=== PATIENT | female | born 1940 | race Caucasian/White ===

== ENCOUNTER 2020-12-02 07:42 | Outpatient (REF) | payer MEDICARE, SELFPAY ==
[2020-12-02 11:21] LABS: MANUAL DIFF FLAG NO
[2020-12-02 11:28] LABS: Glucose Urine UA NEG (NEG); Leukocyte Esterase Urine NEG (NEG); Nitrite Urine NEG (NEG); Specific Gravity - Urine >= 1.030 (1.005-1.025); Urine Blood NEG (NEG); Urine Ketones NEG (NEG); Urine Protein NEG (NEG-TRACE)
[2020-12-02 11:37] LABS: Appearance Urine TURBID; Color Urine YELLOW
[2020-12-02 11:45] LABS: Anion Gap 11 (12-20); Blood Urea Nitrogen 27 mg/dL (9-16); Carbon Dioxide 27 mmol/L (22-29); Chloride 108 mmol/L (96-108); Cholesterol 152 mg/dL; Estimated Glomerular Filt Rate > 60; Glucose Fasting 110 mg/dL (60-99); HDL Cholesterol 58 mg/dL; LDL Cholesterol Calculated 80 mg/dl; Potassium 4.6 mmol/L (3.3-5.1); Sodium 141 mmol/L (135-145); Triglycerides 71 mg/dL
[2020-12-02 11:54] LABS: Basophils Percent Auto 0.6 % (0-2); Eosinophils Absolute Auto 0.1 X10*3/uL (0.0-0.4); Eosinophils Percent Auto 2.7 % (0-4); Hematocrit 39.4 % (37-47); Hemoglobin 12.5 g/dl (12.0-16.0); Imm Gran Abs Auto 0.02 X10*3/uL (0.00-0.03); Imm Gran Pct Auto 0.4 % (0.0-0.4); Lymphocytes Absolute Auto 1.1 X10*3/uL (1.2-4.9); Lymphocytes Percent Auto 21.3 % (20-40); Mean Corpuscular HGB Conc 31.7 g/dl (31.0-35.0); Mean Corpuscular Hemoglobin 33.5 pg (27.0-33.0); Mean Corpuscular Volume 105.6 fL (80-98); Mean Platelet Volume 9.7 fL (9.4-12.3); Monocytes Absolute Auto 0.5 X10*3/uL (0.1-1.2); Monocytes Percent Auto 9.4 % (2-11); Neutrophils Absolute Auto 3.4 X10*3/uL (2.0-8.3); Neutrophils Percent Auto 65.6 % (45-73); Platelet Count 259 X10*3/uL (160-400); Red Blood Count 3.73 X10*6/uL (4.20-5.50); Red Cell Distribution Width 13.8 % (11.0-16.0); White Blood Count 5.1 X10*3/uL (4.8-10.8)
[2020-12-02 12:09] LABS: TSH reflex Free T4 1.72 uIU/mL (0.32-4.0)
[2020-12-02 12:14] LABS: Amorphous Sediment Urine 4+ /LPF; Bacteria Urine TRACE /LPF; RBC Urine 0 /HPF (0); WBC Urine 0 /HPF (0-4)
[2020-12-02 13:01] LABS: Creatinine Urine 134.57 mg/dL; Microalbum/Creatinine Ratio Ur 14.1 ug/mg cr
[2020-12-09 13:15] LABS: Vitamin D 25-OH, D2 <4 ng/mL; Vitamin D 25-OH, D3 31 ng/mL; Vitamin D 25-OH, Total 31 ng/mL (30-100)
== END 2020-12-02 07:43 | disposition home or self-care (01) ==
LOC: HO.HMGCLDS 07:42
PROVIDERS: PCP Internal Medicine; Visit Provider Internal Medicine
DX: Z00.00 Encounter for general adult medical examination without abnormal findings (principal); I10 Essential (primary) hypertension; R73.01 Impaired fasting glucose; E55.9 Vitamin D deficiency, unspecified; R31.1 Benign essential microscopic hematuria; E78.5 Hyperlipidemia, unspecified; E66.3 Overweight
CPT/HCPCS: 36415; 80048; 80061; 81001; 82043; 82306; 84443; 85025

== ENCOUNTER 2020-12-06 08:50 | Outpatient (REF) | payer MEDICARE, SELFPAY ==
--- NOTE | 2020-12-06 13:23 | MHC.AU.ANO ---
Adult Audiological Evaluation Date of Visit: 12/06/20 Adjunct Faculty Instructor Used: Not Applicable Reason for Appointment: Audiologic re-evaluation due to question of change in hearing ability. Katarzyna reports speech sounds more garbled and she is not able to understand the speaker and some surrounding sounds when in [place]. Does patient feel they have a hearing loss?: Yes If Yes, Which Ear?: Both Ears Has hearing been tested previously?: Yes Previous Hearing Test Results: [facility] 11/29/2019 Right Ear - Moderate to moderately-severe sensorineural hearing loss with 92% speech understanding at 80 dB HL Left Ear - Mild sloping to moderately-severe sensorineural hearing loss with 96% speech understanding at 75 dB HL Ear History: Ear used on the phone: Left Ear History of occupational and/or noise exposure?: No Medical History: Medical History: Headache, High Blood Pressure Measles, Mumps as a child Medication List: Propranolol, Lisinopril Otoscopy: Right Ear: Unremarkable Left Ear: Unremarkable Tympanometry: Tympanometry performed due to: Patient report of problem with sound quality/clarity Right Ear: Normal Middle Ear System (Type A) Left Ear: Normal Middle Ear System (Type A) Otoacoustic Emissions Not performed at today's visit. Hearing Evaluation: Transducer(s) Used: Insert Earphones Bone Conduction Method: Conventional Audiometry Stimuli Used: Pure Tones Right Ear: Description of Hearing: Moderate to moderately-severe sensorineural hearing loss Left Ear: Description of Hearing: Mild sloping to moderately-severe sensorineural hearing loss Speech Recognition Threshold (SRT): Method Used: Monitored Live Voice Stimuli Used: Spondee Words Right Ear: 45 dB HL Left Ear: 40 dB HL Word Discrimination: Method: Recorded Lists Word Lists Used: NU-6 Right Ear: 96% at 75 dB HL Left Ear: 88% at 70 dB HL Most Comfortable Level (MCL): Right Ear: 75 dB HL Left Ear: 70 dB HL QuickSIN: Binaural Quick SIN Test: 5 dB SNR Loss suggesting Katarzyna experiences a mild degree of difficulty understanding speech with increasing levels of background noise in this controlled test environment. Comparison: Compared to most recent evaluation: Compared to 2019, thresholds have decreased for both ears 5-10 dB with stable speech understanding Interpretation of Results: With this degree and configuration of hearing loss, Katarzyna will know people are speaking and hear many environmental sounds. However, she does not always understand what others are saying, particularly when people are speaking from a distance, a different room, or when background noise is present. Recommendations: Trial with amplification is recommended. Medical clearance from a physician is required before fitting. Hearing Aid Fitting will be scheduled when all materials arrive. Discussed and provided a handout regarding Communication Strategies to use to improve speech understanding as much as possible. Audiological re-evaluation in one year. Will send a reminder card. Diagnosis: Primary Diagnosis: H90.3 Bilateral Sensorineural Hearing Loss Services Performed: Comprehensive Audiological Evaluation (CPT 46884) Tympanometry (CPT 89309) Signature: Provider: Russell White, CCC-A
--- NOTE | 2020-12-06 13:30 | MHC.AU.HAS ---
Hearing Aid Evaluation Date of Visit: 12/06/20 Fruit Coordinator Used: Not Applicable Historical Information: Description of Hearing: Asymmetric mild/moderate low frequency sloping to moderately-severe sensorineural hearing loss , right ear poorer than left 250-2000 Hz Current personal amplification information, if applicable: None Summary: Binaural hearing aids are recommended to facilitate communication. Discussed appropriate hearing aid styles and levels of technology. Hearing Aid Prescription: Based on the individual?s shared listening needs, communication environments, dexterity, desire for connectivity, and personal preferences, the following prescription for amplification has been made: Right ear: Web Production Artist: Phonak Model: Virto M 90-312 Battery Size: 312 Color: [place] Left ear: Left ear prescription to be same as Right Hearing Aid above: Web Production Artist: Phonak Model: Virto M 90-312 Battery Size: 312 Color: [place] Plan of Care: Patient wishes to purchase hearing aids as prescribed Action Taken/Action Needed: [place] Impressions Taken, Medical Clearance to be requested from PCP/ENT, Hearing Instrument Fitting to be scheduled when materials arrive Primary Diagnosis: H90.3 Bilateral Sensorineural Hearing Loss Signature: Provider: Russell White, CCC-A
--- NOTE | 2020-12-06 13:41 | MHC.AU.ANO ---
Adult Audiological Evaluation Date of Visit: 12/06/20 Bi Lead Used: Not Applicable Reason for Appointment: Audiologic re-evaluation due to question of change in hearing ability. Katarzyna reports speech sounds more garbled and she is not able to understand the speaker and some surrounding sounds when in [place]. Does patient feel they have a hearing loss?: Yes If Yes, Which Ear?: Both Ears Has hearing been tested previously?: Yes Previous Hearing Test Results: [facility] 11/29/2019 Right Ear - Moderate to moderately-severe sensorineural hearing loss with 92% speech understanding at 80 dB HL Left Ear - Mild sloping to moderately-severe sensorineural hearing loss with 96% speech understanding at 75 dB HL Ear History: Ear used on the phone: Left Ear History of occupational noise exposure?: No History: History: No Medical History: Medical History: Headache, High Blood Pressure Measle, Mumps as a child Medication List: Propranolol, Lisinopril Otoscopy: Right Ear: Unremarkable Left Ear: Unremarkable Tympanometry: Tympanometry performed due to: Patient report of problem with sound quality/clarity Right Ear: Normal Middle Ear System (Type A) Left Ear: Normal Middle Ear System (Type A) Otoacoustic Emissions Not performed at today's visit. Hearing Evaluation: Transducer(s) Used: Insert Earphones Bone Conduction Method: Conventional Audiometry Stimuli Used: Pure Tones Right Ear: Description of Hearing: Moderate to moderately-severe sensorineural hearing loss Left Ear: Description of Hearing: Mild sloping to moderately-severe sensorineural hearing loss Speech Recognition Threshold (SRT): Method Used: Monitored Live Voice Stimuli Used: Spondee Words Right Ear: 45 dB HL Left Ear: 40 dB HL Word Discrimination: Method: Recorded Lists Word Lists Used: NU-6 Right Ear: 96% at 75 dB HL Left Ear: 88% at 70 dB HL Most Comfortable Level (MCL): Right Ear: 75 dB HL Left Ear: 70 dB HL QuickSIN: Binaural Quick SIN Test: 5 dB SNR Loss suggesting Katarzyna experiences a mild degree of difficulty understanding speech with increasing levels of background noise in this controlled test environment. Comparison: Compared to 2019, thresholds have decreased for both ears 5-10 dB with stable speech understanding Interpretation of Results: With this degree and configuration of hearing loss, Katarzyna will know people are speaking and hear many environmental sounds. However, she does not always understand what others are saying, particularly when people are speaking from a distance, a different room, or when background noise is present. Recommendations: Trial with amplification is recommended. Medical clearance from a physician is required before fitting. Hearing Aid Fitting will be scheduled when all materials arrive. Discussed and provided a handout regarding Communication Strategies to use to improve speech understanding as much as possible. Audiological re-evaluation in one year. Will send a reminder card. Diagnosis: Primary Diagnosis: H90.3 Bilateral Sensorineural Hearing Loss Services Performed: Comprehensive Audiological Evaluation (CPT 31419) Tympanometry (CPT 07758) Signature: Provider: Russell White, CCC-A
== END 2020-12-06 08:51 | disposition home or self-care (01) ==
LOC: HO.SH 08:50
PROVIDERS: Visit Provider Internal Medicine
DX: H90.3 Sensorineural hearing loss, bilateral (principal)
CPT/HCPCS: 92557; 92567

== ENCOUNTER 2020-12-06 10:03 | Outpatient (REF) | payer SELFPAY ==
--- NOTE | 2020-12-06 13:36 | MHC.AU.HAS ---
Hearing Aid Evaluation Date of Visit: 12/06/20 Buckle Attaching Machine Operator Used: Not Applicable Historical Information: Description of Hearing: Asymmetric mild to moderate, sloping to moderately-severe sensorineural hearing loss with right ear poorer than left at 250-2000 Hz Current personal amplification information, if applicable: None Summary: Binaural hearing aids are recommended to facilitate communication. Discussed appropriate hearing aid styles and levels of technology. Due to patient concerns, Custom [id number] are advised for ease of use as is only one piece to handle for each ear. Hearing Aid Prescription: Based on the individual?s shared listening needs, communication environments, dexterity, desire for connectivity, and personal preferences, the following prescription for amplification has been made: Right ear: Logging Crew Supervisor: Phonak Model: Virto M 90-312 Battery Size: 312 Color: [place] Left ear: Left ear prescription to be same as Right Hearing Aid above: Logging Crew Supervisor: Phonak Model: Virto M 90-312 Battery Size: 312 Color: [place] Plan of Care: Patient wishes to purchase hearing aids as prescribed Action Taken/Action Needed: Earmold Impressions Taken, Medical Clearance to be requested from PCP/ENT, Hearing Instrument Fitting to be scheduled when materials arrive Primary Diagnosis: H90.3 Bilateral Sensorineural Hearing Loss Signature: Provider: Russell White, CCC-A
--- NOTE | 2020-12-06 13:40 | MHC.AU.MED ---
Medical Clearance for Hearing Instrumentation Date: 12/06/20 Patient Name: Katarzyna Driver Date of : 1940 Primary Care Provider: Referring Provider: Kavon Ramirez MD We have seen your patient on 12/06/20 and have determined that they are a candidate for amplification (See accompanying report). Specifically, they would benefit from: Hearing aid use in both ears There is a statute that addresses Medical Evaluation Requirements prior to fitting a patient with a hearing aid. According to [place] statute 265 CMR:6.03(1), (a) General. Except as provided in 265 CMR 6.03(1)(b), a shearing shed worker shall not sell a hearing aid unless the prospective user has presented to the shearing shed worker a written statement signed by a licensed physician that states that the patient's hearing loss has been medically evaluated and the patient may be considered a candidate for a hearing aid. The medical evaluation must have taken place within the preceding six months. Please note: Due to the [place] Statute referenced above, we cannot accept a signature other than that of a licensed physician. [employer] A REGIONAL TRUCK DRIVER and PA signatures cannot be accepted. I am in agreement with the above recommendation. There is no medical contraindication for hearing instrumentation. Physician Signature Date Physician Name (Printed)
== END 2020-12-06 10:04 | disposition home or self-care (01) ==
LOC: HO.HAP 10:03
PROVIDERS: Visit Provider Internal Medicine
DX: Z46.1 Encounter for fitting and adjustment of hearing aid (principal); H90.3 Sensorineural hearing loss, bilateral
CPT/HCPCS: 92591

== ENCOUNTER 2021-01-20 09:23 | Outpatient (REF) | payer SELFPAY | END 2021-01-20 09:24 | disposition home or self-care (01) | LOC: HO.HAP 09:23 | PROVIDERS: Visit Provider Internal Medicine | DX: Z46.1 Encounter for fitting and adjustment of hearing aid (principal); H90.3 Sensorineural hearing loss, bilateral | CPT/HCPCS: V5260 ==

== ENCOUNTER 2021-01-31 10:26 | Outpatient (REF) | payer SELFPAY | END 2021-01-31 10:27 | disposition home or self-care (01) | LOC: HO.HAP 10:26 | PROVIDERS: Visit Provider Internal Medicine | DX: Z13.89 Encounter for screening for other disorder (principal) ==

== ENCOUNTER 2022-06-25 08:39 | Outpatient (REF) | payer MEDICARE, SELFPAY ==
--- NOTE | ~2022-06-25 | MM_ITS ---
EXAMINATION: BONE DENSITOMETRY CLINICAL INDICATION: Osteoporosis. COMPARISON: Previous BD dated 01/27/2016 and baseline BD dated 10/03/2010. TECHNIQUE: Using a [employer] DXA System (software version: 13.1) manufactured by [employer], dual-energy x-ray absorptiometry was performed of the lumbar spine and left hip. The images are of good technical quality. Summary results are attached. FINDINGS: AP SPINE L1-L2 (excluding L3 and L4): The data of L1-L4 has been changed to exclude the L3 and L4 vertebral bodies, because degenerative changes at these levels may cause overestimation of lumbar spine density. Current: BMD 0.691 g/cm2, Z-score -2.1, T-score -3.9, osteoporosis, 4.1% increase from previous, 3.8% decrease from baseline (<5% change is not significant). Prior: BMD 0.664 g/cm2. Baseline: BMD 0.718 g/cm2. LEFT FEMUR, NECK: Current: BMD 0.546 g/cm2, Z-score -1.3, T-score -3.5, osteoporosis. Prior: BMD 0.605 g/cm2. Baseline: BMD 0.690 g/cm2. LEFT FEMUR, TOTAL: Current: BMD 0.615 g/cm2, Z-score -1.0, T-score -3.1, osteoporosis, 12.1% decrease from previous, 19.3% decrease from baseline (<5% change is not significant). Prior: BMD 0.700 g/cm2. Baseline: BMD 0.762 g/cm2. IDENTIFIED RISK FACTORS: Menopause, height loss, family history (parent hip fracture). HISTORY OF FRACTURE: None listed. MEDICATIONS: Vitamin D. MM/XR DEXA axial skeleton IMPRESSION: 1. DIAGNOSIS: Osteoporosis based on the lowest T-score value of -3.9 in the lumbar spine applying World Health Organization criteria. 2. 10-YEAR FRACTURE RISK PREDICTION, FRAX: According to the guidelines, FRAX calculation should only be performed on patients in the osteopenia bone density category. Therefore, FRAX was not performed on this patient. 3. Treatment Recommendations: NOF guidelines recommend consideration for treatment in postmenopausal women and men age 50 and older presenting with the following: -A hip or vertebral (clinical or morphometric) fracture. -T-score less than or equal to -2.5 at the femoral neck or spine after appropriate evaluation to exclude secondary causes. -Low bone mass at the hip or spine and a 10-year fracture probability by FRAX of greater than or equal to 3% for hip fracture or greater than or equal to 20% for major osteoporotic fracture based on the [place] adapted WHO algorithm. 4. Other Recommendations: All treatment decisions require clinical judgment and consideration of individual patient factors, including patient preferences, comorbidities, previous drug use, risk factors not captured in the FRAX model (e.g. frailty, falls, vitamin D deficiency, increased bone turnover, interval significant decline in bone density) and possible under or overestimation of fracture risk by FRAX. Additional medical evaluation for secondary cause of low bone mineral density may be appropriate. FUTURE SCAN RECOMMENDATION: People with diagnosed cases of osteoporosis or at high risk for fracture should have regular bone mineral density tests. For patients eligible for Medicare, routine testing is allowed once every 2 years. The testing frequency can be increased to one year for patients who have rapidly progressing disease, those who are receiving or discontinuing medical therapy to restore bone mass, or have additional risk factors.
== END 2022-06-25 08:40 | disposition home or self-care (01) ==
LOC: HO.MAMMO 08:39
PROVIDERS: PCP Internal Medicine; Visit Provider Internal Medicine
DX: Z13.820 Encounter for screening for osteoporosis (principal); M81.0 Age-related osteoporosis without current pathological fracture; Z78.0 Asymptomatic menopausal state
CPT/HCPCS: 77080

== ENCOUNTER 2022-12-09 10:00 | Outpatient (AMB) | payer MEDICARE, SELFPAY ==
[2022-12-09 10:01] VITALS: BP 114/60; PULSE 67; O2SAT 76; BMI 27.6
--- NOTE | 2022-12-09 10:01 | MHC.PC.OV ---
Vital Signs 12/09/22 10:01 Height 5 ft 1 in Weight 146 lb BMI 27.6 BP 114/60 Blood Pressure Location Lt brachial Position Sitting Pulse 67 Pulse Source Pulse Oximeter Pulse Oximetry (%) 76 L Oxygen Delivery Method Room Air Intake Visit Reasons: HTN, osteoporosis Quality Controller Required: No Accompanied by: Self / Same As Patient Allergies No Known Allergies Allergy (Verified 12/09/22 10:34) Medication List - Last Reconciled 12/09/22 by Kavon Ramirez MD lisinopril 10 mg PO DAILY propranolol ER 80 mg PO DAILY Tobacco use date assessed: 12/09/22 Fall risk assessment: No Falls in past year Last assessed Fall Risk: 12/09/22 Dental Screening Dental Screen Date: 12/09/22 Did you have a dental visit in the last 12 months?: Yes Did you have a dental problem in the last 6 months where you did not have access to dental care?: No Was dental information given to patient?: Patient has dentist HPI HTN, osteoporosis HPI Details Patient comes in today for her follow up visit States that she feels okay She denies any headaches or dizziness Denies any chest pains, no SOB No nausea/vomiting, no abdominal pain No change in bowel habits noted Needs her 2 Rx refilled today Would also like to know how she did on her repeat BMD done a few months ago [facility] Medical History Benign essential hypertension Benign microscopic hematuria Constipation Dyslipidemia Impaired fasting glucose Migraine Osteoarthritis of right knee Osteoporosis Overweight (BMI 25.0-29.9) Vitamin D deficiency Surgical History History of colonoscopy Family History Father Medical history unknown Mother Medical history unknown Social History Housing: House Alcohol intake: current Alcohol intake frequency: holidays/special occasions only Patient Tobacco Use Status: Never used Tobacco e-Cigarette/Vaping Use: Never Used Second Hand Smoke Exposure: Yes service: No Current occupational status: retired Cognitive needs: No Hearing needs: Yes Vision needs: Yes Questionnaire PHQ-9 Over the last 2 weeks, how often have you been bothered by any of the following problems? 1. Little interest or pleasure in doing things: not at all 2. Feeling down, depressed, or hopeless: not at all 3. Trouble falling or staying asleep, or sleeping too much: not at all 4. Feeling tired or having little energy: not at all 5. Poor appetite or overeating: not at all 6. Feeling bad about yourself - or that you are a failure or have let yourself or your family down: not at all 7. Trouble concentrating on things, such as reading the newspaper or watching television: not at all 8. Moving or speaking so slowly that other people could have noticed. Or the opposite - being so fidgety or restless that you have been moving around a lot more than usual: not at all 9. Thoughts that you would be better off or of hurting yourself in some way: not at all Total score: 0 Depression Screening Interpretation: Negative [id number] - PHQ-9 Billing: Yes Source: Developed by Drs. Prabhu Crawford, Annamarie Coffey, Tobi Giles and colleagues, with an educational jovan from [employer]. Thrive Questionnaire Date Thrive assessed: 12/09/22 I am a: Patient What is your living situation today?: I have a steady place to live Within the past 12 months, did the food you bought not last and you didn't have the money to get more?: Never true Within the past 12 months, did you worry whether your food would run out before you got money to buy more?: Never true Do you have trouble paying for medicines?: No Do you have trouble getting transportation to medical appointments?: No Do you have trouble paying your heating and electricity bill?: No Do you have trouble taking care of your child, family member or friend?: No Do you have trouble with day-to-day activities such as bathing, preparing meals, shopping, managing finances, etc.?: No Are you currently unemployed and looking for a job?: No Are you interested in more education?: No Please select the resources that you would like help with: None Currently or been in a relationship where the following occur: no concerns reported AUDIT C Alcohol Use Questionnaire (AUDIT-C) 1. How often do you have a drink containing alcohol?: Never 3. How often do you have six or more drinks on one occasion?: Never Total Score: 0 Score Reviewed/Action Taken: Yes YOLANDA-7 AMB Questionnaire YOLANDA-7 Date YOLANDA - 7 assessed: 12/09/22 Feeling nervous, anxious, or on edge: 0 = Not at all Not being able to stop or control worryin = Not at all Worrying too much about different things: 0 = Not at all Trouble relaxin = Not at all Being so restless that it is hard to sit still: 0 = Not at all Becoming easily annoyed or irritable: 0 = Not at all Feeling afraid as if something awful might happen: 0 = Not at all Total YOLANDA-7 score (0-4 normal; 5-9 mild; 10-14 moderate; 15-21 severe): 0 Source: Developed by Drs. Prabhu Crawford, Annamarie Coffey, Tobi Giles and colleagues, with an educational jovan from [employer]. Review of Systems Const Reports difficulty sleeping (at times), Denies fatigue, Denies fever(s) and Denies headache(s) ENT Denies dysphagia, Denies dizziness, Denies otalgia, Denies headache(s), Reports hearing loss (now wears hearing aids), Denies odynophagia and Denies sore throat Card Denies chest pain, Denies palpitations and Denies dyspnea Resp Denies cough and Denies dyspnea GI Denies abdominal pain, Denies constipation, Denies dysphagia, Denies heartburn, Denies diarrhea, Denies nausea, Denies odynophagia and Denies vomiting Denies difficulty voiding, Denies nocturia and Denies dysuria Musc Reports arthralgias (minimal - in both knees), Denies joint swelling and Reports stiffness (in both knees - has a hard time using stairs) Skin/Breast Denies rash Neuro Denies dizziness and Denies headache(s) Endo Denies fatigue and Denies palpitations Physical exam (Primary Care) Vital Signs: Last Vital Signs Pulse 67 12/09/22 10:01 BP 114/60 12/09/22 10:01 Pulse Ox 76 L 12/09/22 10:01 Oxygen Delivery Method Room Air 12/09/22 10:01 BMI result Body Mass Index 27.6 Tobacco/Smoking Status: Tobacco use Status Tobacco use date assessed 12/09/22 12/09/22 10:09 Patient Tobacco Use Status Never used Tobacco 12/09/22 10:09 e-Cigarette/Vaping Use Never Used 12/09/22 10:09 PHQ-9: PHQ-9 Score PHQ-9: Total score 0 12/09/22 10:39 Depression Screening Interpretation: Negative Thrive Assessment: Date of Thrive Assessment Date Thrive assessed 12/09/22 12/09/22 10:09 Currently or been in a relationship where the following occur: no concerns reported Const General: no acute distress and alert HENMT Ears: TM's normal bilaterally, EAC's normal and other (has hearing aids in both ears) Throat: Yes posterior oropharynx normal and Yes tonsils normal (no TP congestion noted) Neck Neck: Yes no lymphadenopathy and Yes supple Resp Auscultation: clear to auscultation bilaterally, no rales and no wheezes Cardio Rate: regular rate Rhythm: regular rhythm Heart sounds: no murmurs GI Palpation (GI): Soft to palpation and nontender Auscultation: normal bowel sounds Extrem General: Yes no clubbing, cyanosis or edema Right lower extremity: knee Details: tenderness and crepitus; no swelling Left lower extremity: knee Details: tenderness and crepitus; no swelling Assessment and Plan Assessment & Plan (1) Benign essential hypertension: Code(s): I10 - Essential (primary) hypertension Plan: Reinforced low sodium diet - goal is systolic BP of at least 140 to 150 mm or less Continue Lisinopril 10 mg QD (2) Dyslipidemia: Code(s): E78.5 - Hyperlipidemia, unspecified Plan: Had her follow up labs done at the [facility] earlier this year; no labs ordered since Reinforced low cholesterol diet Will have patient recheck her labs in 6 months for follow up (3) Impaired fasting glucose: Code(s): R73.01 - Impaired fasting glucose Plan: FBS was at 96 mg/dl and her HgbA1c was normal at 5.6% on her labs done earlier this year - will continue to monitor these regularly for now Reinforced low calorie diet/exercise as tolerated (4) Migraine: Code(s): G43.909 - Migraine, unspecified, not intractable, without status migrainosus Qualifiers: Intractability: not intractable Migraine type: unspecified Status migrainosus presence: without status migrainosus Qualified Code(s): G43.909 - Migraine, unspecified, not intractable, without status migrainosus Plan: Stable on prophylactic Rx with Propranolol ER 80 mg QD - Rx refilled (5) Osteoporosis: Code(s): M81.0 - Age-related osteoporosis without current pathological fracture Qualifiers: Osteoporosis type: age-related Presence of current pathological fracture: without current pathological fracture Qualified Code(s): M81.0 - Age-related osteoporosis without current pathological fracture Plan: Repeat BMD done back on 06/25/2022 revealed (+) osteoporosis with her lowest T-score value of -3.9 in the lumbar spine Patient is advised that her lumbar spine BMD is mostly unchanged from before but her left femoral BMD has declined significantly from her previous BMD in January 2016 (12.1% decrease) Advised that her current T-score of -3.9 is very low and this means that her fracture risk overall is very high and she should consider starting on Tx She now agrees to start on Alendronate 70 mg Q week as instructed Potential side effects of the medication discussed with patient; is advised to call ROBERTA if she starts experiencing any side effects that are increasing and not letting up even after a few days Have also reminded her to take oral Calcium supplements (at least 1000 mg daily) and Vitamin D3 supplements daily Reinforced fall precautions Will try to recheck her BMD in 1 to 2 years (depending on insurance coverage) for follow up (6) Osteoarthritis of right knee: Code(s): M17.11 - Unilateral primary osteoarthritis, right knee Qualifiers: Osteoarthritis type: primary Qualified Code(s): M17.11 - Unilateral primary osteoarthritis, right knee Plan: States that her knee symptoms have remained stable and manageable X-rays of the knee done back in 2012 showed (+) OA changes and advised that her current knee stiffness is probably due to this Can send her for repeat knee x-rays if needed but patient again would like to hold off on this for now and will call for orders if she decides she needs repeat x-rays Advised that cortisone injections can help but she can only get it so many times and have advised to leave this option for when her knee pain becomes unbearable and nothing else is helping Also advised that physical therapy has helped in the past so that is again an option for her if her knee symptoms progress (7) Vitamin D deficiency: Code(s): E55.9 - Vitamin D deficiency, unspecified Plan: Continue Vitamin D3 1000 units QD (8) Constipation: Code(s): K59.00 - Constipation, unspecified Qualifiers: Constipation type: unspecified constipation type Qualified Code(s): K59.00 - Constipation, unspecified Plan: Improved Encouraged again on increased oral fluids and dietary fiber (9) Benign microscopic hematuria: Code(s): R31.1 - Benign essential microscopic hematuria Plan: Urine cytology done previously was negative - will continue to monitor regularly Patient remains asymptomatic Plan Follow up in 6 months Orders: Orders Complete Blood Count Auto Diff 6 Months I10 - Essential (primary) hypertension Comprehensive [place]. Panel Fast 6 Months E78.00 - Pure hypercholesterolemia, unspecified Lipid Panel 6 Months E78.00 - Pure hypercholesterolemia, unspecified TSH reflex Free T4 6 Months E78.00 - Pure hypercholesterolemia, unspecified Vitamin D 25-OH Total 6 Months E55.9 - Vitamin D deficiency, unspecified UA CC w/rflx Micro + Cult 6 Months R30.0 - Dysuria Vitamin B12 and Folate 6 Months E53.8 - Deficiency of other specified B group vitamins Hemoglobin A1c 6 Months R73.01 - Impaired fasting glucose Medications: New alendronate To be taken first thing in the morning on an empty stomach with a full glass of water; patient has to stay upright for at least the next 30 minutes and should not eat or drink anything else for 30 to 60 minutes after taking the medication 70 mg PO QWEEK 3 months 13 tabs 1RF Changed From propranolol ER 80 mg PO DAILY To propranolol ER 80 mg PO DAILY 90 days 90 caps 3RF Refilled lisinopril 10 mg PO DAILY 90 tabs 3RF Coding Level of Care Code Est Pt Level 4 (71708) Diagnoses Benign essential hypertension I10 Dyslipidemia E78.5 Impaired fasting glucose R73.01 Migraine G43.909 Intractability: not intractable Migraine type: unspecified Status migrainosus presence: without status migrainosus Osteoporosis M81.0 Osteoporosis type: age-related Presence of current pathological fracture: without current pathological fracture Osteoarthritis of right knee M17.11 Osteoarthritis type: primary Vitamin D deficiency E55.9 Constipation K59.00 Constipation type: unspecified constipation type Benign microscopic hematuria R31.1
== END 2022-12-09 10:55 | disposition home or self-care (01) ==
PROVIDERS: Visit Provider Internal Medicine
DX: I10 Essential (primary) hypertension (principal); G43.909 Migraine, unspecified, not intractable, without status migrainosus; E55.9 Vitamin D deficiency, unspecified; E78.5 Hyperlipidemia, unspecified; R73.01 Impaired fasting glucose; M81.0 Age-related osteoporosis without current pathological fracture; M17.11 Unilateral primary osteoarthritis, right knee; K59.00 Constipation, unspecified; R31.1 Benign essential microscopic hematuria
CPT/HCPCS: 99214

== ENCOUNTER 2023-06-14 09:39 | Outpatient (AMB) | payer MEDICARE, SELFPAY ==
[2023-06-14 09:46] VITALS: BP 112/70; PULSE 66; O2SAT 97; BMI 28.2
--- NOTE | 2023-06-14 09:46 | MHC.PC.OV ---
Vital Signs 06/14/23 09:46 Height 5 ft 1 in Weight 149 lb 2 oz BMI 28.2 BP 112/70 Blood Pressure Location Lt brachial Position Sitting Pulse 66 Pulse Source Pulse Oximeter Pulse Oximetry (%) 97 Oxygen Delivery Method Room Air Intake Visit Reasons: HTN, OA, osteoporosis Systems Admin Required: No Accompanied by: Self / Same As Patient Allergies No Known Allergies Allergy (Verified 06/14/23 10:24) Medication List - Last Reconciled 06/14/23 by Kavon Ramirez MD alendronate 70 mg PO QWEEK 3 months lisinopril 10 mg PO DAILY propranolol ER 80 mg PO DAILY 90 days Tobacco use date assessed: 06/14/23 Fall risk assessment: No Falls in past year Dental Screening Dental Screen Date: 06/14/23 Did you have a dental visit in the last 12 months?: Yes Did you have a dental problem in the last 6 months where you did not have access to dental care?: No Was dental information given to patient?: Patient has dentist HPI HTN, OA, osteoporosis HPI Details Patient comes in today for her follow up visit States that she feels okay She denies any headaches or dizziness Denies any chest pains, no SOB No nausea/vomiting, no abdominal pain No change in bowel habits noted Had her follow up labs done at [facility] a couple of weeks ago - to discuss her results [facility] Medical History Overweight (BMI 25.0-29.9) Benign microscopic hematuria Constipation Vitamin D deficiency Osteoarthritis of right knee Osteoporosis Migraine Impaired fasting glucose Dyslipidemia Benign essential hypertension Surgical History History of colonoscopy Family History Father Medical history unknown Mother Medical history unknown Social History Housing: House Alcohol intake: current Alcohol intake frequency: holidays/special occasions only Patient Tobacco Use Status: Never used Tobacco e-Cigarette/Vaping Use: Never Used Second Hand Smoke Exposure: Yes service: No Current occupational status: retired Cognitive needs: No Hearing needs: Yes Vision needs: Yes Questionnaire PHQ-9 Over the last 2 weeks, how often have you been bothered by any of the following problems? 1. Little interest or pleasure in doing things: not at all 2. Feeling down, depressed, or hopeless: not at all 3. Trouble falling or staying asleep, or sleeping too much: not at all 4. Feeling tired or having little energy: not at all 5. Poor appetite or overeating: not at all 6. Feeling bad about yourself - or that you are a failure or have let yourself or your family down: not at all 7. Trouble concentrating on things, such as reading the newspaper or watching television: not at all 8. Moving or speaking so slowly that other people could have noticed. Or the opposite - being so fidgety or restless that you have been moving around a lot more than usual: not at all 9. Thoughts that you would be better off or of hurting yourself in some way: not at all Total score: 0 Depression Screening Interpretation: Negative Depression Screening Done: Yes 52589 - PHQ-9 Billing: Yes Source: Developed by Drs. Prabhu Crawford, Annamarie Coffey, Tobi Giles and colleagues, with an educational jovan from [employer]. Thrive Questionnaire Date Thrive assessed: 06/14/23 I am a: Patient What is your living situation today?: I have a steady place to live Within the past 12 months, did the food you bought not last and you didn't have the money to get more?: Never true Within the past 12 months, did you worry whether your food would run out before you got money to buy more?: Never true Do you have trouble paying for medicines?: No Do you have trouble getting transportation to medical appointments?: No Do you have trouble paying your heating and electricity bill?: No Do you have trouble taking care of your child, family member or friend?: No Do you have trouble with day-to-day activities such as bathing, preparing meals, shopping, managing finances, etc.?: No Are you currently unemployed and looking for a job?: No Are you interested in more education?: No Please select the resources that you would like help with: None Currently or been in a relationship where the following occur: no concerns reported THRIVE Score: 0 AUDIT C Alcohol Use Questionnaire (AUDIT-C) 1. How often do you have a drink containing alcohol?: Never 3. How often do you have six or more drinks on one occasion?: Never Total Score: 0 Score Reviewed/Action Taken: Yes YOLANDA-7 AMB Questionnaire YOLANDA-7 Date YOLANDA - 7 assessed: 06/14/23 Feeling nervous, anxious, or on edge: 0 = Not at all Not being able to stop or control worryin = Not at all Worrying too much about different things: 0 = Not at all Trouble relaxin = Not at all Being so restless that it is hard to sit still: 0 = Not at all Becoming easily annoyed or irritable: 0 = Not at all Feeling afraid as if something awful might happen: 0 = Not at all Total YOLANDA-7 score (0-4 normal; 5-9 mild; 10-14 moderate; 15-21 severe): 0 Source: Developed by Drs. Prabhu Crawford, Annamarie Coffey, Tobi Giles and colleagues, with an educational jovan from [employer]. Review of Systems Const Denies chills, Reports difficulty sleeping (at times), Denies fatigue, Denies fever(s) and Denies headache(s) ENT Denies dysphagia, Denies dizziness, Denies otalgia, Denies headache(s), Reports hearing loss (now wears hearing aids), Denies neck pain, Denies odynophagia and Denies sore throat Card Denies chest pain, Denies palpitations and Denies dyspnea Resp Denies chest congestion, Denies cough and Denies dyspnea GI Denies abdominal pain, Denies constipation, Denies dysphagia, Denies heartburn, Denies diarrhea, Denies nausea, Denies odynophagia and Denies vomiting Denies difficulty voiding, Denies nocturia, Denies dysuria and Denies urinary urgency Musc Denies back pain, Reports arthralgias (minimal - in both knees), Denies joint swelling, Denies neck pain and Reports stiffness (in both knees - has a hard time using stairs at times) Skin/Breast Denies rash Neuro Denies dizziness and Denies headache(s) Psych Denies anxiety and Denies depression Endo Denies fatigue and Denies palpitations Physical exam (Primary Care) Vital Signs: Last Vital Signs Pulse 66 06/14/23 09:46 BP 112/70 06/14/23 09:46 Pulse Ox 97 06/14/23 09:46 Oxygen Delivery Method Room Air 06/14/23 09:46 BMI result Body Mass Index 28.2 Tobacco/Smoking Status: Tobacco use Status Tobacco use date assessed 06/14/23 06/14/23 09:51 Patient Tobacco Use Status Never used Tobacco 06/14/23 09:51 e-Cigarette/Vaping Use Never Used 06/14/23 09:51 PHQ-9: PHQ-9 Score PHQ-9: Total score 0 06/14/23 09:51 Depression Screening Interpretation: Negative Thrive Assessment: Date of Thrive Assessment Date Thrive assessed 06/14/23 06/14/23 09:51 Currently or been in a relationship where the following occur: no concerns reported Const General: no acute distress and alert HENMT Ears: TM's normal bilaterally, EAC's normal and other (has hearing aids in both ears) Throat: Yes posterior oropharynx normal and Yes tonsils normal (no TP congestion noted) Neck Neck: Yes no lymphadenopathy and Yes supple Thyroid: Thyroid normal Resp Auscultation: clear to auscultation bilaterally, no rales and no wheezes Cardio Rate: regular rate Rhythm: regular rhythm Heart sounds: no murmurs GI Palpation (GI): Soft to palpation and nontender Auscultation: normal bowel sounds General: Yes no CVA tenderness Back/Spine/Pelvis Back: no CVA tenderness Thoracic/Lumbar Spine: No lumbar spinal tenderness Skin Rashes: no rashes Extrem General: Yes no clubbing, cyanosis or edema Right lower extremity: knee Details: tenderness and crepitus; no swelling Left lower extremity: knee Details: tenderness and crepitus; no swelling Assessment and Plan Assessment & Plan (1) Benign essential hypertension: Code(s): I10 - Essential (primary) hypertension Plan: Reinforced low sodium diet - goal is systolic BP of at least 140 to 150 mm or less Continue Lisinopril 10 mg QD (2) Dyslipidemia: Code(s): E78.5 - Hyperlipidemia, unspecified Plan: Results of her labs done at [facility] ([facility]) a couple of weeks ago reviewed and discussed with patient - advised that her cholesterol numbers are at goal and that all of her other labs came out okay Reinforced low cholesterol diet We will not order any follow up labs for her next visit at this time - discussed that unless something comes up, we can just get her to do her follow up labs once a year (3) Impaired fasting glucose: Code(s): R73.01 - Impaired fasting glucose Plan: Her HgbA1c was normal at 5.3% on her labs done a couple of weeks ago - will continue to monitor this periodically Reinforced low calorie diet/exercise as tolerated (4) Migraine: Code(s): G43.909 - Migraine, unspecified, not intractable, without status migrainosus Qualifiers: Migraine type: unspecified Status migrainosus presence: without status migrainosus Intractability: not intractable Qualified Code(s): G43.909 - Migraine, unspecified, not intractable, without status migrainosus Plan: Stable on prophylactic Rx with Propranolol ER 80 mg QD (5) Osteoporosis: Code(s): M81.0 - Age-related osteoporosis without current pathological fracture Qualifiers: Osteoporosis type: age-related Presence of current pathological fracture: without current pathological fracture Qualified Code(s): M81.0 - Age-related osteoporosis without current pathological fracture Plan: Repeat BMD done back on 06/25/2022 revealed (+) osteoporosis with her lowest T-score value of -3.9 in the lumbar spine Patient is advised that her lumbar spine BMD is mostly unchanged from before but her left femoral BMD has declined significantly from her previous BMD in January 2016 (12.1% decrease) Continue Alendronate 70 mg Q week She is reminded to continue taking her oral Calcium supplements (at least 1000 mg daily) and Vitamin D3 supplements daily Reinforced fall precautions Will try to recheck her BMD next year (depending on insurance coverage) for follow up (6) Osteoarthritis of right knee: Code(s): M17.11 - Unilateral primary osteoarthritis, right knee Qualifiers: Osteoarthritis type: primary Qualified Code(s): M17.11 - Unilateral primary osteoarthritis, right knee Plan: States that her knee symptoms have remained stable and manageable X-rays of the knee done back in 2012 showed (+) OA changes and advised that her current knee stiffness is probably due to this Can send her for repeat knee x-rays if needed but patient again would like to hold off on this for now and will call for orders if she decides she needs repeat x-rays Advised that cortisone injections can help but she can only get it so many times and have advised to leave this option for when her knee pain becomes unbearable and nothing else is helping Also advised that physical therapy has helped in the past so that is again an option for her if her knee symptoms progress (7) Vitamin D deficiency: Code(s): E55.9 - Vitamin D deficiency, unspecified Plan: Continue Vitamin D3 1000 units QD (8) Constipation: Code(s): K59.00 - Constipation, unspecified Qualifiers: Constipation type: unspecified constipation type Qualified Code(s): K59.00 - Constipation, unspecified Plan: Improved Encouraged again on increased oral fluids and dietary fiber (9) Benign microscopic hematuria: Code(s): R31.1 - Benign essential microscopic hematuria Plan: Urine cytology done previously was negative - will continue to monitor regularly Patient remains asymptomatic Plan Follow up in 6 months Coding Level of Care Code Est Pt Level 4 (79246) Diagnoses Benign essential hypertension I10 Dyslipidemia E78.5 Impaired fasting glucose R73.01 Migraine without status migrainosus, not intractable, unspecified migraine type G43.909 Migraine type: unspecified Status migrainosus presence: without status migrainosus Intractability: not intractable Age-related osteoporosis without current pathological fracture M81.0 Osteoporosis type: age-related Presence of current pathological fracture: without current pathological fracture Primary osteoarthritis of right knee M17.11 Osteoarthritis type: primary Vitamin D deficiency E55.9 Constipation, unspecified constipation type K59.00 Constipation type: unspecified constipation type Benign microscopic hematuria R31.1
== END 2023-06-14 10:32 | disposition home or self-care (01) ==
PROVIDERS: PCP Internal Medicine; Visit Provider Internal Medicine
DX: I10 Essential (primary) hypertension (principal); E78.5 Hyperlipidemia, unspecified; R73.01 Impaired fasting glucose; G43.909 Migraine, unspecified, not intractable, without status migrainosus; M81.0 Age-related osteoporosis without current pathological fracture; M17.11 Unilateral primary osteoarthritis, right knee; E55.9 Vitamin D deficiency, unspecified; K59.00 Constipation, unspecified; R31.1 Benign essential microscopic hematuria
CPT/HCPCS: 99214

== ENCOUNTER 2023-11-11 08:50 | Outpatient (REF) | payer SELFPAY ==
--- NOTE | 2023-11-11 09:32 | MHC.AU.HA3 ---
Hearing Instrument Follow-Up- Binaural Date of Visit: 11/11/23 Right Ear: Make, Model, Color, Serial Number: Tabby Leggett [id number] SN: [id number] Color: [place] [employer] Property Evaluator Repair Warranty: 01/19/2024 Real Property Evaluator Loss and Damage Warranty: 01/19/2024 [facility] Service Plan: 01/19/2024 Battery Size: 312 Type of Wax Guard: CeruStop Dispensed By: [facility] Date of Fittin01/20/2021 Left Ear: [place], Model, Color, Serial Number: Tabby Leggett [id number] SN: [id number] Color: [place] [employer] Property Evaluator Repair Warranty: 01/19/2024 Real Property Evaluator Loss and Damage Warranty: 01/19/2024 [facility] Service Plan: 01/19/2024 Battery Size: 312 Type of Wax Guard: CeruStop Dispensed By: [facility] Date of Fittin01/20/2021 Follow-Up Summary: Left hearing aid not working - Microphone ports occluded with debris and wax build up noted behind wax guard. Cleaned both hearing aids. Vacuumed microphones. Ran through dehumidifier. Replaced wax guards, left wax guard system loose. Although new wax guard stayed in place, had to place it back in hearing aid with finger, would not grab/remove from stick. Listening check positive after cleaning. However, recommended sending hearing aids to [facility] for clean and check and to fix left wax guard system prior to warranty expiring. Katarzyna opted to send one hearing aid out at a time. Left hearing aid sent to [facility]. When it returns, Katarzyna will strip picker left hearing aid and drop off right hearing aid to be sent out. Recommendations: Patient will be contacted when materials have arrived. Diagnosis Code(s): Primary Diagnosis: H90.3 Bilateral Sensorineural Hearing Loss Signature: Provider: Jose Antonio Gutierrez, [facility]
== END 2023-11-11 08:51 | disposition home or self-care (01) ==
LOC: HO.HAP 08:50
PROVIDERS: Visit Provider Internal Medicine
DX: Z13.89 Encounter for screening for other disorder (principal)

== ENCOUNTER 2023-11-30 08:52 | Outpatient (REF) | payer SELFPAY ==
--- NOTE | 2023-11-30 09:46 | MHC.AU.HA3 ---
Hearing Instrument Follow-Up- Binaural Date of Visit: 11/30/23 Right Ear: Make, Model, Color, Serial Number: Tabby Leggett [id number] SN: [id number] Color: [place] Canceling Machine Operator Repair Warranty: 01/19/2024 Canceling Machine Operator Loss and Damage Warranty: 01/19/2024 [facility] Service Plan: 01/19/2024 Battery Size: 312 Type of Wax Guard: CeruStop Dispensed By: [facility] Date of Fittin01/20/2021 Left Ear: Make, Model, Color, Serial Number: Tabby Leggett [id number] SN: [id number] Color: [place] Canceling Machine Operator Repair Warranty: 01/19/2024 Canceling Machine Operator Loss and Damage Warranty: 01/19/2024 [facility] Service Plan: 01/19/2024 Battery Size: 312 Type of Wax Guard: CeruStop Dispensed By: [facility] Date of Fittin01/20/2021 Follow-Up Summary: Dropped off right hearing aid to be sent to [facility] for clean and check prior to warranty expiring, as discussed at previous appointment. Sent right hearing aid to [facility]. Recommendations: Patient will be contacted when materials have arrived. Diagnosis Code(s): Primary Diagnosis: H90.3 Bilateral Sensorineural Hearing Loss Signature: Provider: Jose Antonio Gutierrez, [facility]
== END 2023-11-30 08:53 | disposition home or self-care (01) ==
LOC: HO.HAP 08:52
PROVIDERS: Visit Provider Internal Medicine
DX: Z13.89 Encounter for screening for other disorder (principal)

== ENCOUNTER 2023-11-30 08:57 | Outpatient (REF) | payer SELFPAY | END 2023-11-30 08:58 | disposition home or self-care (01) | LOC: HO.HAP 08:57 | PROVIDERS: Visit Provider Internal Medicine | DX: Z13.89 Encounter for screening for other disorder (principal) ==

== ENCOUNTER 2023-12-20 13:30 | Outpatient (REF) | payer SELFPAY | END 2023-12-20 13:31 | disposition home or self-care (01) | LOC: HO.HAP 13:30 | PROVIDERS: Visit Provider Internal Medicine | DX: Z13.89 Encounter for screening for other disorder (principal) ==

== ENCOUNTER 2024-01-20 08:42 | Outpatient (AMB) | payer MEDICARE, SELFPAY ==
[2024-01-20 09:37] VITALS: BP 120/78; PULSE 67; O2SAT 97; BMI 27.8
--- NOTE | 2024-01-20 09:37 | A.OFFPC_ITS ---
Vital Signs 01/20/24 09:37 Height 5 ft 1 in Weight 147 lb BMI 27.8 BP 120/78 Blood Pressure Location Lt brachial Position Sitting Pulse 67 Pulse Source Pulse Oximeter Pulse Oximetry (%) 97 Oxygen Delivery Method Room Air Intake Visit Reasons: HTN, osteoporosis Revenue Cycle Manager Required: No Accompanied by: Self / Same As Patient Allergies No Known Allergies Allergy (Verified 01/20/24 10:13) Medication List - Last Reconciled 01/20/24 by Kavon Ramirez MD alendronate 70 mg PO QWEEK 3 months lisinopril 10 mg PO DAILY omeprazole 20 mg PO DAILY propranolol ER 80 mg PO DAILY 90 days Tobacco use date assessed: 01/20/24 Fall risk assessment: No Falls in past year Last assessed Fall Risk: 01/20/24 Dental Screening Dental Screen Date: 01/20/24 Did you have a dental visit in the last 12 months?: Yes Did you have a dental problem in the last 6 months where you did not have access to dental care?: No Was dental information given to patient?: Patient has dentist HPI HTN, osteoporosis HPI Details Patient comes in today for her follow up visit States that she feels okay She denies any headaches or dizziness Denies any chest pains, no SOB No nausea/vomiting, no abdominal pain but reports that she has been experiencing recurrent heartburns lately States that 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 pharmacy in time and needs another Rx for Omeprazole sent in for her again No change in bowel habits noted PFSH Medical History Overweight (BMI 25.0-29.9) Benign microscopic hematuria Constipation Vitamin D deficiency Osteoarthritis of right knee Osteoporosis Migraine Impaired fasting glucose Dyslipidemia Benign essential hypertension Surgical History History of colonoscopy Family History Father Medical history unknown Mother Medical history unknown Social History Housing: House Alcohol intake: current Alcohol intake frequency: holidays/special occasions only Patient Tobacco Use Status: Never used Tobacco e-Cigarette/Vaping Use: Never Used Second Hand Smoke Exposure: Yes service: No Current occupational status: retired Cognitive needs: No Hearing needs: Yes Vision needs: Yes Questionnaire PHQ-9 Over the last 2 weeks, how often have you been bothered by any of the following problems? 1. Little interest or pleasure in doing things: not at all 2. Feeling down, depressed, or hopeless: not at all 3. Trouble falling or staying asleep, or sleeping too much: not at all 4. Feeling tired or having little energy: not at all 5. Poor appetite or overeating: not at all 6. Feeling bad about yourself - or that you are a failure or have let yourself or your family down: not at all 7. Trouble concentrating on things, such as reading the newspaper or watching television: not at all 8. Moving or speaking so slowly that other people could have noticed. Or the opposite - being so fidgety or restless that you have been moving around a lot more than usual: not at all 9. Thoughts that you would be better off or of hurting yourself in some way: not at all Total score: 0 Depression Screening Interpretation: Negative Depression Screening Done: Yes 42089 - PHQ-9 Billing: Yes Source: Developed by Drs. Prabhu Crawford, Annamarie Coffey, Tobi Giles and colleagues, with an educational jovan from [email or web address]. Thrive Questionnaire Date Thrive assessed: 01/20/24 I am a: Patient What is your living situation today?: I have a steady place to live Within the past 12 months, did the food you bought not last and you didn't have the money to get more?: Never true Within the past 12 months, did you worry whether your food would run out before you got money to buy more?: Never true Do you have trouble paying for medicines?: No Do you have trouble getting transportation to medical appointments?: No Do you have trouble paying your heating and electricity bill?: No Do you have trouble taking care of your child, family member or friend?: No Do you have trouble with day-to-day activities such as bathing, preparing meals, shopping, managing finances, etc.?: No Are you currently unemployed and looking for a job?: No Are you interested in more education?: No Please select the resources that you would like help with: None Currently or been in a relationship where the following occur: No concerns reported THRIVE Score: 0 AUDIT C Alcohol Use Questionnaire (AUDIT-C) 1. How often do you have a drink containing alcohol?: Never 3. How often do you have six or more drinks on one occasion?: Never Total Score: 0 Score Reviewed/Action Taken: Yes YOLANDA-7 AMB Questionnaire YOLANDA-7 Date YOLANDA - 7 assessed: 01/20/24 Feeling nervous, anxious, or on edge: 0 = Not at all Not being able to stop or control worryin = Not at all Worrying too much about different things: 0 = Not at all Trouble relaxin = Not at all Being so restless that it is hard to sit still: 0 = Not at all Becoming easily annoyed or irritable: 0 = Not at all Feeling afraid as if something awful might happen: 0 = Not at all Total YOLANDA-7 score (0-4 normal; 5-9 mild; 10-14 moderate; 15-21 severe): 0 Source: Developed by Drs. Prabhu Crawford, Annamarie Coffey, Tobi Giles and colleagues, with an educational jovan from [email or web address]. Review of Systems Const Denies chills, Reports difficulty sleeping (at times), Denies fatigue, Denies fever(s) and Denies headache(s) ENT Denies dysphagia, Denies dizziness, Denies otalgia, Denies headache(s), Reports hearing loss (wears hearing aids), Denies neck pain, Denies odynophagia and Denies sore throat Card Denies chest pain, Denies palpitations and Denies dyspnea Resp Denies chest congestion, Denies cough and Denies dyspnea GI Denies abdominal pain, Denies constipation, Denies dysphagia, Reports heartburn (recurrent lately), Denies diarrhea, Denies nausea, Denies odynophagia and Denies vomiting Denies difficulty voiding, Denies nocturia, Denies dysuria and Denies urinary urgency Musc Denies back pain, Reports arthralgias (minimal - in both knees), Denies joint swelling, Denies neck pain and Reports stiffness (in both knees - has a hard time using stairs at times) Skin/Breast Denies rash Neuro Denies dizziness and Denies headache(s) Psych Denies anxiety and Denies depression Endo Denies fatigue and Denies palpitations Physical exam (Primary Care) Vital Signs: Last Vital Signs Pulse 67 01/20/24 09:37 BP 120/78 01/20/24 09:37 Pulse Ox 97 01/20/24 09:37 Oxygen Delivery Method Room Air 01/20/24 09:37 BMI result Body Mass Index 27.8 Tobacco/Smoking Status: Tobacco use Status Tobacco use date assessed 01/20/24 01/20/24 09:42 Patient Tobacco Use Status Never used Tobacco 01/20/24 09:42 e-Cigarette/Vaping Use Never Used 01/20/24 09:42 PHQ-9: PHQ-9 Score PHQ-9: Total score 0 01/20/24 09:42 Depression Screening Interpretation: Negative Thrive Assessment: Date of Thrive Assessment Date Thrive assessed 01/20/24 01/20/24 09:42 Currently or been in a relationship where the following occur: No concerns reported Const General: no acute distress and alert HENMT Ears: TM's normal bilaterally, EAC's normal and other (has hearing aids in both ears) Throat: Yes posterior oropharynx normal and Yes tonsils normal (no TP congestion noted) Neck Neck: Yes no lymphadenopathy and Yes supple Thyroid: Thyroid normal Resp Auscultation: clear to auscultation bilaterally, no rales and no wheezes Cardio Rate: regular rate Rhythm: regular rhythm Heart sounds: no murmurs GI Palpation (GI): Soft to palpation and nontender Auscultation: normal bowel sounds General: Yes no CVA tenderness Back/Spine/Pelvis Back: no CVA tenderness Thoracic/Lumbar Spine: No lumbar spinal tenderness Skin Rashes: no rashes Extrem General: Yes no clubbing, cyanosis or edema Right lower extremity: knee Details: tenderness and crepitus; no swelling Left lower extremity: knee Details: tenderness and crepitus; no swelling Assessment and Plan Assessment & Plan (1) Benign essential hypertension: Code(s): I10 - Essential (primary) hypertension Plan: Reinforced low sodium diet - goal is systolic BP of at least 140 to 150 mm or less Continue Lisinopril 10 mg QD (2) Dyslipidemia: Code(s): E78.5 - Hyperlipidemia, unspecified Plan: Reinforced low cholesterol diet Will have patient recheck her labs and fasting lipids in 6 months for follow up (3) Impaired fasting glucose: Code(s): R73.01 - Impaired fasting glucose Plan: Her HgbA1c was normal at 5.3% on her labs done a few months ago - will continue to monitor this periodically Reinforced low calorie diet/exercise as tolerated (4) Migraine: Code(s): G43.909 - Migraine, unspecified, not intractable, without status migrainosus Qualifiers: Migraine type: unspecified Status migrainosus presence: without status migrainosus Intractability: not intractable Qualified Code(s): G43.909 - Migraine, unspecified, not intractable, without status migrainosus Plan: Stable on prophylactic Rx with Propranolol ER 80 mg QD (5) Osteoporosis: Comment: started on Alendronate 12/2022 Code(s): M81.0 - Age-related osteoporosis without current pathological fracture Qualifiers: Osteoporosis type: age-related Presence of current pathological fr acture: without current pathological fracture Qualified Code(s): M81.0 - Age- related osteoporosis without current pathological fracture Plan: Repeat BMD done back on 06/25/2022 revealed (+) osteoporosis with her lowest T- score value of -3.9 in the lumbar spine Patient is advised that her lumbar spine BMD is mostly unchanged from before but her left femoral BMD has declined significantly from her previous BMD in January 2016 (12.1% decrease) Continue Alendronate 70 mg Q week - she was started on Alendronate in December 2022 She is reminded to continue taking her oral Calcium supplements (at least 1000 mg daily) and Vitamin D3 supplements daily Reinforced fall precautions Will try to recheck her BMD next year in 2024 (depending on insurance coverage) for follow up (6) Osteoarthritis of right knee: Code(s): M17.11 - Unilateral primary osteoarthritis, right knee Qualifiers: Osteoarthritis type: primary Qualified Code(s): M17.11 - Unilateral primary osteoarthritis, right knee Plan: States that her knee symptoms have remained stable and manageable X-rays of the knee done back in 2012 showed (+) OA changes and advised that her current knee stiffness is probably due to this Can send her for repeat knee x-rays if needed but patient again would like to hold off on this for now and will call for orders if she decides she needs repeat x-rays Have advised her that cortisone injections can help but she can only get it so many times and have advised to leave this option for when her knee pain becomes unbearable and nothing else is helping Have also advised her that physical therapy has helped in the past so that is again an option for her if her knee symptoms progress (7) Vitamin D deficiency: Code(s): E55.9 - Vitamin D deficiency, unspecified Plan: Continue Vitamin D3 1000 units QD (8) Heartburn: Code(s): R12 - Heartburn Plan: She likely has GERD Reinforced dietary restrictions Will send in again Rx for Omeprazole 20 mg QD PRN (9) Constipation: Code(s): K59.00 - Constipation, unspecified Qualifiers: Constipation type: unspecified constipation type Qualified Code(s): K59.00 - Constipation, unspecified Plan: Improved She is encouraged again on increased oral fluids and dietary fiber (10) Benign microscopic hematuria: Code(s): R31.1 - Benign essential microscopic hematuria Plan: Urine cytology done previously was negative - will continue to monitor regularly Patient remains asymptomatic Plan Follow up in 6 months Orders: Orders Complete Blood Count Auto Diff 6 Months D64.9 - Anemia, unspecified Lipid Panel 6 Months E78.00 - Pure hypercholesterolemia, unspecified UA CC w/rflx Micro + Cult 6 Months R30.0 - Dysuria Vitamin D 25-OH Total 6 Months E55.9 - Vitamin D deficiency, unspecified Comprehensive [facility]. Panel Fast 6 Months E78.00 - Pure hypercholesterolemia, unspecified TSH reflex Free T4 6 Months E78.00 - Pure hypercholesterolemia, unspecified Medications: Refilled omeprazole 20 mg PO DAILY 30 caps 1RF Coding Level of Care Code Est Pt Level 4 (40828) Diagnoses Benign essential hypertension I10 Dyslipidemia E78.5 Impaired fasting glucose R73.01 Migraine without status migrainosus, not intractable, unspecified migraine type G43.909 Migraine type: unspecified Status migrainosus presence: without status migrainosus Intractability: not intractable Age-related osteoporosis without current pathological fracture M81.0 Osteoporosis type: age-related Presence of current pathological fracture: without current pathological fracture Primary osteoarthritis of right knee M17.11 Osteoarthritis type: primary Vitamin D deficiency E55.9 Heartburn R12 Constipation, unspecified constipation type K59.00 Constipation type: unspecified constipation type Benign microscopic hematuria R31.1
== END 2024-01-20 10:26 | disposition home or self-care (01) ==
PROVIDERS: PCP Internal Medicine; Visit Provider Internal Medicine
DX: I10 Essential (primary) hypertension (principal); E78.5 Hyperlipidemia, unspecified; R73.01 Impaired fasting glucose; G43.909 Migraine, unspecified, not intractable, without status migrainosus; M81.0 Age-related osteoporosis without current pathological fracture; M17.11 Unilateral primary osteoarthritis, right knee; E55.9 Vitamin D deficiency, unspecified; R12 Heartburn; K59.00 Constipation, unspecified; R31.1 Benign essential microscopic hematuria

== ENCOUNTER → 2024-01-20 08:42 | Outpatient (BNVA) | payer MEDICARE, SELFPAY | PROVIDERS: PCP Internal Medicine; Visit Provider Internal Medicine | DX: I10 Essential (primary) hypertension (principal); E78.5 Hyperlipidemia, unspecified; R73.01 Impaired fasting glucose; G43.909 Migraine, unspecified, not intractable, without status migrainosus; M81.0 Age-related osteoporosis without current pathological fracture; M17.11 Unilateral primary osteoarthritis, right knee; E55.9 Vitamin D deficiency, unspecified; R12 Heartburn; K59.00 Constipation, unspecified; R31.1 Benign essential microscopic hematuria; Z79.899 Other long term (current) drug therapy | CPT/HCPCS: 96127; 99212 ==

== ENCOUNTER 2024-04-20 11:54 | Outpatient (AMB) | payer MEDICARE, SELFPAY ==
[2024-04-20 12:06] VITALS: BP 136/66; PULSE 83; O2SAT 99; BMI 27.4
--- NOTE | 2024-04-20 12:06 | A.OFFPC_ITS ---
Vital Signs 04/20/24 12:06 04/20/24 12:25 Height 5 ft 1 in Weight 145 lb BMI 27.4 BP 136/66 130/60 Blood Pressure Location Lt brachial Lt brachial Position Sitting Sitting Pulse 83 Pulse Source Pulse Oximeter Pulse Oximetry (%) 99 Oxygen Delivery Method Room Air Intake Visit Reasons: [facility] 05/16 & LT 06/01 Nursery Manager Required: No Accompanied by: Self / Same As Patient Allergies No Known Allergies Allergy (Verified 04/20/24 12:19) Medication List - Last Reconciled 04/20/24 by Kavon Ramirez MD alendronate 70 mg PO QWEEK 3 months lisinopril 10 mg PO DAILY omeprazole 20 mg PO DAILY propranolol ER 80 mg PO DAILY 90 days Tobacco use date assessed: 01/20/24 Fall risk assessment: No Falls in past year Last assessed Fall Risk: 04/20/24 Dental Screening Dental Screen Date: 04/20/24 Did you have a dental visit in the last 12 months?: Yes Did you have a dental problem in the last 6 months where you did not have access to dental care?: No Was dental information given to patient?: Patient has dentist HPI [facility] 05/16 & LT 06/01 HPI Details Patient comes in today at the request of Dr. Camden Rousseau for a preoperative medical examination for clearance for surgery She is scheduled for cataract extraction/phacoemulsification with IOL of the right eye under MAC on 05/16/2024, followed by the same procedure on the left eye a couple of weeks later on 06/01/2024 Patient states that she feels well She denies any headaches or dizziness Denies any chest pains, no SOB No nausea/vomiting, no abdominal pain but states that she still has recurrent heartburns lately She is back to taking her Omeprazole daily now and takes some OTC Tums when needed at times, with (+) relief of her symptoms No change in bowel habits noted [facility] Medical History (Updated 04/20/24 @ 13:53 by Kavon Ramirez MD) GERD without esophagitis Overweight (BMI 25.0-29.9) Benign microscopic hematuria Constipation Vitamin D deficiency Osteoarthritis of right knee Osteoporosis Migraine Impaired fasting glucose Dyslipidemia Benign essential hypertension Surgical History History of colonoscopy Family History Father Medical history unknown Mother Medical history unknown Social History Housing: House Alcohol intake: current Alcohol intake frequency: holidays/special occasions only Patient Tobacco Use Status: Never used Tobacco e-Cigarette/Vaping Use: Never Used Second Hand Smoke Exposure: Yes service: No Current occupational status: retired Cognitive needs: No Hearing needs: Yes Vision needs: Yes Questionnaire PHQ-9 Over the last 2 weeks, how often have you been bothered by any of the following problems? Depression Screening Interpretation: Negative Depression Screening Done: Yes Source: Developed by Drs. Prabhu Crawford, Annamarie Coffey, Tobi Giles and colleagues, with an educational jovan from [employer]. Thrive Questionnaire Date Thrive assessed: 01/20/24 Are you currently unemployed and looking for a job?: No Currently or been in a relationship where the following occur: No concerns reported THRIVE Score: 0 AUDIT C Alcohol Use Questionnaire (AUDIT-C) 2. How many drinks containing alcohol do you have on a typical day when you are drinking?: 1 or 2 3. How often do you have six or more drinks on one occasion?: Never Total Score: 0 YOLANDA-7 AMB Questionnaire YOLANDA-7 Date YOLANDA - 7 assessed: 01/20/24 Source: Developed by Drs. Prabhu Crawford, Annamarie Coffey, Tobi Giles and colleagues, with an educational jovan from [employer]. Review of Systems Const Denies chills, Reports difficulty sleeping (at times), Denies fatigue, Denies fever(s) and Denies headache(s) Eyes Reports blurry vision (in both eyes) ENT Denies dysphagia, Denies dizziness, Denies otalgia, Denies headache(s), Reports hearing loss (wears hearing aids), Denies neck pain, Denies odynophagia and Denies sore throat Card Denies chest pain, Denies palpitations and Denies dyspnea Resp Denies chest congestion, Denies cough and Denies dyspnea GI Denies abdominal pain, Denies constipation, Denies dysphagia, Reports heartburn (recurrent ), Denies diarrhea, Denies nausea, Denies odynophagia and Denies vomiting Denies difficulty voiding, Denies nocturia, Denies dysuria and Denies urinary urgency Musc Denies back pain, Reports arthralgias (minimal - in both knees), Denies joint swelling, Denies neck pain and Reports stiffness (in both knees - has a hard time using stairs at times) Skin/Breast Denies rash Neuro Denies dizziness and Denies headache(s) Psych Denies anxiety and Denies depression Endo Denies fatigue and Denies palpitations Physical exam (Primary Care) Vital Signs: Last Vital Signs Pulse 83 04/20/24 12:06 BP 136/66 04/20/24 12:06 Pulse Ox 99 04/20/24 12:06 Oxygen Delivery Method Room Air 04/20/24 12:06 BMI result Body Mass Index 27.4 Tobacco/Smoking Status: Tobacco use Status Tobacco use date assessed 01/20/24 04/20/24 12:11 Patient Tobacco Use Status Never used Tobacco 04/20/24 12:11 e-Cigarette/Vaping Use Never Used 04/20/24 12:11 Depression Screening Interpretation: Negative Thrive Assessment: Date of Thrive Assessment Date Thrive assessed 01/20/24 04/20/24 12:11 Currently or been in a relationship where the following occur: No concerns reported Const General: no acute distress and alert HENMT Ears: TM's normal bilaterally, EAC's normal and other (has hearing aids in both ears) Throat: Yes posterior oropharynx normal and Yes tonsils normal (no TP congestion noted) Neck Neck: Yes supple and No lymphadenopathy Thyroid: Thyroid normal Resp Auscultation: clear to auscultation bilaterally, no rales and no wheezes Cardio Rate: regular rate Rhythm: regular rhythm Heart sounds: no murmurs GI Palpation (GI): Soft to palpation and nontender Auscultation: normal bowel sounds General: Yes no CVA tenderness Back/Spine/Pelvis Back: no CVA tenderness Thoracic/Lumbar Spine: No lumbar spinal tenderness Skin Rashes: no rashes Extrem General: Yes no clubbing, cyanosis or edema Right lower extremity: knee Details: tenderness and crepitus; no swelling Left lower extremity: knee Details: tenderness and crepitus; no swelling Coding Level of Care Code Est Pt Level 4 (69398) Diagnoses Preoperative examination Z01.818 Age-related cataract of both eyes, unspecified age-related cataract type H25.9 Cataract type: age-related Age-related cataract type: unspecified Benign essential hypertension I10 Dyslipidemia E78.5 Impaired fasting glucose R73.01 Migraine without status migrainosus, not intractable, unspecified migraine type G43.909 Migraine type: unspecified Status migrainosus presence: without status migrainosus Intractability: not intractable Age-related osteoporosis without current pathological fracture M81.0 Osteoporosis type: age-related Presence of current pathological fracture: without current pathological fracture Primary osteoarthritis of right knee M17.11 Osteoarthritis type: primary Vitamin D deficiency E55.9 GERD without esophagitis K21.9 Constipation, unspecified constipation type K59.00 Constipation type: unspecified constipation type Benign microscopic hematuria R31.1 Overweight (BMI 25.0-29.9) E66.3 Assessment & Plan Assessment & Plan (1) Preoperative examination: Code(s): Z01.818 - Encounter for other preprocedural examination Category: Medical Plan: Patient presents with acceptable risks for planned low cardiac risk procedures She currently appears to be medically optimized and has no contraindications to undergo surgery at this point (2) Cataracts, bilateral: Code(s): H26.9 - Unspecified cataract Category: Medical Qualifiers: Cataract type: age-related Age-related cataract type: unspecified Qualified Code(s): H25.9 - Unspecified age-related cataract Plan: She is scheduled for cataract extraction/phacoemulsification with IOL of the right eye under MAC on 05/16/2024, followed by the same procedure on the left eye a couple of weeks later on 06/01/[address] Cam[facility] (3) Benign essential hypertension: Code(s): I10 - Essential (primary) hypertension Category: Medical Plan: Reinforced low sodium diet - goal is systolic BP of at least 140 to 150 mm or less Continue Lisinopril 10 mg QD (4) Dyslipidemia: Code(s): E78.5 - Hyperlipidemia, unspecified Category: Medical Plan: Reinforced low cholesterol diet She will recheck her labs and fasting lipids in a couple of months for follow up as scheduled (5) Impaired fasting glucose: Code(s): R73.01 - Impaired fasting glucose Category: Medical Plan: Her HgbA1c was normal at 5.3% on her labs done a few months ago - will continue to monitor this periodically Reinforced low calorie diet/exercise as tolerated (6) Migraine: Code(s): G43.909 - Migraine, unspecified, not intractable, without status migrainosus Category: Medical Qualifiers: Migraine type: unspecified Status migrainosus presence: without status migrainosus Intractability: not intractable Qualified Code(s): G43.909 - Migraine, unspecified, not intractable, without status migrainosus Plan: Stable on prophylactic Rx with Propranolol ER 80 mg QD (7) Osteoporosis: Comment: started on Alendronate 12/2022 Code(s): M81.0 - Age-related osteoporosis without current pathological fracture Category: Medical Qualifiers: Osteoporosis type: age-related Presence of current pathological fracture: without current pathological fracture Qualified Code(s): M81.0 - Age- related osteoporosis without current pathological fracture Plan: Repeat BMD done back on 06/25/2022 revealed (+) osteoporosis with her lowest T- score value of -3.9 in the lumbar spine Patient is advised that her lumbar spine BMD is mostly unchanged from before but her left femoral BMD has declined significantly from her previous BMD in January 2016 (12.1% decrease) Continue Alendronate 70 mg Q week - she was started on Alendronate in December 2022 She is reminded to continue taking her oral Calcium supplements (at least 1000 mg daily) and Vitamin D3 supplements daily Reinforced fall precautions Will try to recheck her BMD next year in 2024 (depending on insurance coverage) for follow up (8) Osteoarthritis of right knee: Code(s): M17.11 - Unilateral primary osteoarthritis, right knee Category: Medical Qualifiers: Osteoarthritis type: primary Qualified Code(s): M17.11 - Unilateral primary osteoarthritis, right knee Plan: Patient states that her knee symptoms have remained stable and manageable lately X-rays of the knee done back in 2012 showed (+) OA changes and advised that her current knee stiffness is probably due to this Can send her for repeat knee x-rays if needed but patient again would like to hold off on this for now and will call for orders if she decides she needs repeat x-rays Have advised her that cortisone injections can help but she can only get it so many times and have advised to leave this option for when her knee pain becomes unbearable and nothing else is helping Have also advised her that physical therapy has helped in the past so that is also an option for her if her knee symptoms progress (9) Vitamin D deficiency: Code(s): E55.9 - Vitamin D deficiency, unspecified Category: Medical Plan: Continue Vitamin D3 1000 units QD (10) GERD without esophagitis: Code(s): K21.9 - Gastro-esophageal reflux disease without esophagitis Category: Medical Plan: Dietary restrictions in GERD reinforced Continue Omeprazole 20 mg QD (11) Constipation: Code(s): K59.00 - Constipation, unspecified Category: Medical Qualifiers: Constipation type: unspecified constipation type Qualified Code(s): K59.00 - Constipation, unspecified Plan: Improved She is encouraged again on increased oral fluids and dietary fiber (12) Benign microscopic hematuria: Code(s): R31.1 - Benign essential microscopic hematuria Category: Medical Plan: Urine cytology done previously was negative - will continue to monitor regularly Patient remains asymptomatic (13) Overweight (BMI 25.0-29.9): Code(s): E66.3 - Overweight Category: Medical Plan: Reinforced diet/exercise as tolerated/lose weight Plan Patient is currently medically optimized and has no contraindications to undergo staged cataract procedures as planned - she is MEDICALLY CLEARED for surgery Follow up as scheduled in July 2024
[2024-04-20 12:25] VITALS: BP 130/60
== END 2024-04-20 12:27 | disposition home or self-care (01) ==
PROVIDERS: PCP Internal Medicine; Visit Provider Internal Medicine
DX: Z01.818 Encounter for other preprocedural examination (principal); H25.9 Unspecified age-related cataract; I10 Essential (primary) hypertension; E78.5 Hyperlipidemia, unspecified; R73.01 Impaired fasting glucose; G43.909 Migraine, unspecified, not intractable, without status migrainosus; M81.0 Age-related osteoporosis without current pathological fracture; M17.11 Unilateral primary osteoarthritis, right knee; E55.9 Vitamin D deficiency, unspecified; K21.9 Gastro-esophageal reflux disease without esophagitis; K59.00 Constipation, unspecified; R31.1 Benign essential microscopic hematuria; E66.3 Overweight

== ENCOUNTER → 2024-04-20 11:54 | Outpatient (BNVA) | payer MEDICARE, SELFPAY | PROVIDERS: PCP Internal Medicine; Visit Provider Internal Medicine | DX: Z01.818 Encounter for other preprocedural examination (principal); H25.9 Unspecified age-related cataract; I10 Essential (primary) hypertension; E78.5 Hyperlipidemia, unspecified; R73.01 Impaired fasting glucose; G43.909 Migraine, unspecified, not intractable, without status migrainosus; M81.0 Age-related osteoporosis without current pathological fracture; M17.11 Unilateral primary osteoarthritis, right knee; E55.9 Vitamin D deficiency, unspecified | CPT/HCPCS: 99212 ==

== ENCOUNTER 2024-11-14 14:04 | Outpatient (AMB) | payer MEDICARE, SELFPAY ==
--- NOTE | 2024-11-14 14:07 | A.OFFPC_ITS ---
Vital Signs 11/14/24 14:08 Height 5 ft 1 in Weight 144 lb BMI 27.2 BP 104/62 Blood Pressure Location Lt brachial Position Sitting Pulse 72 Pulse Source Pulse Oximeter Pulse Oximetry (%) 97 Oxygen Delivery Method Room Air Intake Visit Reasons: 6mth f/u Administrative Project Coordinator Required: No Accompanied by: Self / Same As Patient Allergies No Known Allergies Allergy (Verified 11/14/24 14:29) Medication List - Last Reconciled 11/14/24 by Kavon Ramirez MD alendronate 70 mg PO QWEEK 3 months lisinopril 10 mg PO DAILY omeprazole 20 mg PO DAILY propranolol ER 80 mg PO DAILY 90 days Tobacco use date assessed: 11/14/24 Fall risk assessment: No Falls in past year Last assessed Fall Risk: 11/14/24 Dental Screening Dental Screen Date: 11/14/24 Did you have a dental visit in the last 12 months?: Yes Did you have a dental problem in the last 6 months where you did not have access to dental care?: No Was dental information given to patient?: Patient has dentist HPI 6mth f/u HPI Details Patient comes in today for her follow up visit States that she feels okay She denies any headaches or dizziness Denies any chest pains, no SOB No nausea/vomiting, no abdominal pain; states that her heartburns have been well-controlled on her current Rx No change in bowel habits noted Needs all of her Rx refilled for a 90-days supply at a time [facility] Medical History GERD without esophagitis Overweight (BMI 25.0-29.9) Benign microscopic hematuria Constipation Vitamin D deficiency Osteoarthritis of right knee Osteoporosis Migraine Impaired fasting glucose Dyslipidemia Benign essential hypertension Surgical History History of colonoscopy Family History Father Medical history unknown Mother Medical history unknown Social History Housing: House Alcohol intake: current Alcohol intake frequency: holidays/special occasions only Patient Tobacco Use Status: Never used Tobacco e-Cigarette/Vaping Use: Never Used Second Hand Smoke Exposure: Yes service: No Current occupational status: retired Cognitive needs: No Hearing needs: Yes Vision needs: Yes Questionnaire PHQ-9 Over the last 2 weeks, how often have you been bothered by any of the following problems? 1. Little interest or pleasure in doing things: not at all 2. Feeling down, depressed, or hopeless: not at all 3. Trouble falling or staying asleep, or sleeping too much: not at all 4. Feeling tired or having little energy: not at all 5. Poor appetite or overeating: not at all 6. Feeling bad about yourself - or that you are a failure or have let yourself or your family down: not at all 7. Trouble concentrating on things, such as reading the newspaper or watching television: not at all 8. Moving or speaking so slowly that other people could have noticed. Or the opposite - being so fidgety or restless that you have been moving around a lot more than usual: not at all 9. Thoughts that you would be better off or of hurting yourself in some way: not at all Total score: 0 Depression Screening Interpretation: Negative Depression Screening Done: Yes 49791 - PHQ-9 Billing: Yes Source: Developed by Drs. Prabhu Crawford, Annamarie Coffey, Tobi Giles and colleagues, with an educational jovan from [employer]. Thrive Questionnaire Date Thrive assessed: 11/14/24 I am a: Patient What is your living situation today?: I have a steady place to live Within the past 12 months, did the food you bought not last and you didn't have the money to get more?: Never true Within the past 12 months, did you worry whether your food would run out before you got money to buy more?: Never true Do you have trouble paying for medicines?: No Do you have trouble getting transportation to medical appointments?: No Do you have trouble paying your heating and electricity bill?: No Do you have trouble taking care of your child, family member or friend?: No Do you have trouble with day-to-day activities such as bathing, preparing meals, shopping, managing finances, etc.?: No Are you currently unemployed and looking for a job?: No Are you interested in more education?: No Please select the resources that you would like help with: None Currently or been in a relationship where the following occur: No concerns reported THRIVE Score: 0 AUDIT C Alcohol Use Questionnaire (AUDIT-C) 1. How often do you have a drink containing alcohol?: Monthly or less 2. How many drinks containing alcohol do you have on a typical day when you are drinking?: 1 or 2 3. How often do you have six or more drinks on one occasion?: Never Total Score: 1 Score Reviewed/Action Taken: Yes YOLANDA-7 AMB Questionnaire YOLANDA-7 Date YOLANDA - 7 assessed: 11/14/24 Feeling nervous, anxious, or on edge: 0 = Not at all Not being able to stop or control worryin = Not at all Worrying too much about different things: 0 = Not at all Trouble relaxin = Not at all Being so restless that it is hard to sit still: 0 = Not at all Becoming easily annoyed or irritable: 0 = Not at all Feeling afraid as if something awful might happen: 0 = Not at all Total YOLANDA-7 score (0-4 normal; 5-9 mild; 10-14 moderate; 15-21 severe): 0 Source: Developed by Drs. Prabhu Crawford, Annamarie Coffey, Tobi Giles and colleagues, with an educational jovan from [employer]. Review of Systems Const Reports difficulty sleeping (at times), Denies fatigue, Denies fever(s) and Denies headache(s) ENT Denies dysphagia, Denies dizziness, Denies otalgia, Denies headache(s), Reports hearing loss (wears hearing aids), Denies neck pain, Denies odynophagia and Denies sore throat Card Denies chest pain, Denies palpitations and Denies dyspnea Resp Denies chest congestion, Denies cough and Denies dyspnea GI Denies abdominal pain, Denies constipation, Denies dysphagia, Reports heartburn (recurrent ), Denies diarrhea, Denies nausea, Denies odynophagia and Denies vomiting Denies difficulty voiding, Denies nocturia, Denies dysuria and Denies urinary urgency Musc Denies back pain, Reports arthralgias (minimal - in both knees), Denies joint swelling, Denies neck pain and Reports stiffness (in both knees - has a hard time using stairs at times) Skin/Breast Denies rash Neuro Denies dizziness and Denies headache(s) Psych Denies anxiety and Denies depression Endo Denies fatigue and Denies palpitations Physical exam (Primary Care) Vital Signs: Last Vital Signs Pulse 72 11/14/24 14:08 BP 104/62 11/14/24 14:08 Pulse Ox 97 11/14/24 14:08 Oxygen Delivery Method Room Air 11/14/24 14:08 BMI result Body Mass Index 27.2 Tobacco/Smoking Status: Tobacco use Status Tobacco use date assessed 11/14/24 11/14/24 14:20 Patient Tobacco Use Status Never used Tobacco 11/14/24 14:09 e-Cigarette/Vaping Use Never Used 11/14/24 14:09 PHQ-9: PHQ-9 Score PHQ-9: Total score 0 11/14/24 14:21 Depression Screening Interpretation: Negative Thrive Assessment: Date of Thrive Assessment Date Thrive assessed 11/14/24 11/14/24 14:20 Currently or been in a relationship where the following occur: No concerns reported Const General: no acute distress and alert HENMT Ears: TM's normal bilaterally, EAC's normal and other (has hearing aids in both ears) Throat: Yes posterior oropharynx normal and Yes tonsils normal (no TP congestion noted) Neck Neck: Yes supple and No lymphadenopathy Thyroid: Thyroid normal Resp Auscultation: clear to auscultation bilaterally, no rales and no wheezes Cardio Rate: regular rate Rhythm: regular rhythm Heart sounds: no murmurs GI Palpation (GI): Soft to palpation and nontender Auscultation: normal bowel sounds General: Yes no CVA tenderness Back/Spine/Pelvis Back: no CVA tenderness Thoracic/Lumbar Spine: No lumbar spinal tenderness Skin Rashes: no rashes Extrem General: Yes no clubbing, cyanosis or edema Right lower extremity: knee Details: tenderness and crepitus; no swelling Left lower extremity: knee Details: tenderness and crepitus; no swelling Coding Level of Care Code Est Pt Level 4 (36732) Diagnoses Benign essential hypertension I10 Dyslipidemia E78.5 Impaired fasting glucose R73.01 Migraine without status migrainosus, not intractable, unspecified migraine type G43.909 Migraine type: unspecified Status migrainosus presence: without status migrainosus Intractability: not intractable Age-related osteoporosis without current pathological fracture M81.0 Osteoporosis type: age-related Presence of current pathological fracture: without current pathological fracture Primary osteoarthritis of right knee M17.11 Osteoarthritis type: primary Vitamin D deficiency E55.9 GERD without esophagitis K21.9 Constipation, unspecified constipation type K59.00 Constipation type: unspecified constipation type Benign microscopic hematuria R31.1 Overweight (BMI 25.0-29.9) E66.3 Additional Codes PHQ-9 - 72265 - PHQ-9 Billing: Yes ([id number]) Assessment & Plan Assessment & Plan (1) Benign essential hypertension: Code(s): I10 - Essential (primary) hypertension Category: Medical Plan: Reinforced low sodium diet - goal is systolic BP of at least 140 to 150 mm or less Continue Lisinopril 10 mg QD Patient is reminded to monitor her blood pressure regularly (2) Dyslipidemia: Code(s): E78.5 - Hyperlipidemia, unspecified Category: Medical Plan: Reinforced low cholesterol diet Will have patient recheck her labs and fasting lipids in 6 months for follow up (3) Impaired fasting glucose: Code(s): R73.01 - Impaired fasting glucose Category: Medical Plan: Her HgbA1c was normal at 5.3% when checked earlier this year - will continue to monitor this periodically Reinforced low calorie diet/exercise as tolerated (4) Migraine: Code(s): G43.909 - Migraine, unspecified, not intractable, without status migrainosus Category: Medical Qualifiers: Migraine type: unspecified Status migrainosus presence: without status migrainosus Intractability: not intractable Qualified Code(s): G43.909 - Migraine, unspecified, not intractable, without status migrainosus Plan: Stable/controlled on prophylactic Rx Continue Propranolol ER 80 mg QD (5) Osteoporosis: Comment: started on Alendronate 12/2022 Code(s): M81.0 - Age-related osteoporosis without current pathological fracture Category: Medical Qualifiers: Osteoporosis type: age-related Presence of current pathological fracture: without current pathological fracture Qualified Code(s): M81.0 - Age- related osteoporosis without current pathological fracture Plan: Repeat BMD done back on 06/25/2022 revealed (+) osteoporosis with her lowest T- score value of -3.9 in the lumbar spine Patient is advised that her lumbar spine BMD is mostly unchanged from before but her left femoral BMD has declined significantly from her previous BMD in January 2016 (12.1% decrease) Continue Alendronate 70 mg Q week - she was started on Alendronate in December 2022 She is reminded to continue taking her oral Calcium supplements (at least 1000 mg daily) and Vitamin D3 supplements daily Reinforced fall precautions Will recheck her BMD next year (2025) for follow up (6) Osteoarthritis of right knee: Code(s): M17.11 - Unilateral primary osteoarthritis, right knee Category: Medical Qualifiers: Osteoarthritis type: primary Qualified Code(s): M17.11 - Unilateral pr imary osteoarthritis, right knee Plan: Patient states that her knee symptoms have remained stable and manageable lately X-rays of the knee done back in 2012 showed (+) OA changes and advised that her current knee stiffness is probably due to this Can send her for repeat knee x-rays if needed but patient again would like to hold off on this for now and will call for orders if she decides she needs repeat x-rays Have advised her that cortisone injections can help but she can only get it so many times and have advised to leave this option for when her knee pain becomes unbearable and nothing else is helping Have also advised her that physical therapy has helped in the past so that is also an option for her if her knee symptoms progress (7) Vitamin D deficiency: Code(s): E55.9 - Vitamin D deficiency, unspecified Category: Medical Plan: Continue Vitamin D3 1000 units QD (8) GERD without esophagitis: Code(s): K21.9 - Gastro-esophageal reflux disease without esophagitis Category: Medical Plan: Dietary restrictions in GERD reinforced Continue Omeprazole 20 mg QD - states that her heartburns have improved significantly with her Rx (9) Constipation: Code(s): K59.00 - Constipation, unspecified Category: Medical Qualifiers: Constipation type: unspecified constipation type Qualified Code(s): K59.00 - Constipation, unspecified Plan: Improved She is encouraged again on increased oral fluids and dietary fiber (10) Benign microscopic hematuria: Code(s): R31.1 - Benign essential microscopic hematuria Category: Medical Plan: Urine cytology done previously was negative - will continue to monitor regularly Patient remains asymptomatic (11) Overweight (BMI 25.0-29.9): Code(s): E66.3 - Overweight Category: Medical Plan: Reinforced diet/exercise as tolerated/lose weight Plan Follow up in 6 months Orders: Orders Complete Blood Count Auto Diff 6 Months D64.9 - Anemia, unspecified Lipid Panel 6 Months E78.00 - Pure hypercholesterolemia, unspecified Vitamin D 25-OH Total 6 Months E55.9 - Vitamin D deficiency, unspecified Vitamin B12 and Folate 6 Months E53.8 - Deficiency of other specified B group vitamins Comprehensive [place]. Panel Fast 6 Months E78.00 - Pure hypercholesterolemia, unspecified UA CC w/rflx Micro + Cult 6 Months R30.0 - Dysuria TSH reflex Free T4 6 Months E78.00 - Pure hypercholesterolemia, unspecified Medications: Changed From omeprazole 20 mg PO DAILY 30 caps 1RF To omeprazole 20 mg PO DAILY 90 caps 3RF 90 days From lisinopril 10 mg PO DAILY 90 tabs 3RF To lisinopril 10 mg PO DAILY 90 tabs 3RF 90 days Refilled propranolol ER 80 mg PO DAILY 90 caps 3RF 90 days
[2024-11-14 14:08] VITALS: BP 104/62; PULSE 72; O2SAT 97; BMI 27.2
--- OUTSIDE RECORDS SUMMARY | 2024-11-14 15:23 | XMS_ITS | Encounter Summary ---
Author Organization [facility] Address [address] [place] [address] Care Team Providers Care Telegraphic Typewriter Repairer Name Role Phone Kavon Ramirez MD Primary Care Provider [phone] Encounter Details Date Type Department Care Team (Late st Contact Info) Description 06/28/2024 Lab Requisition [facility] - Main Lab [address] [facility] [place] [address] Kavon Ramirez MD [address] [place] [address] [address] [place], [place] Anemia, unspecified; Pure hypercholesterolemia , unspecified; Vitamin D deficiency, unspecified Social History Tobacco Use Types Packs/Day Years Used Date Smoking Tobacco: Never Assessed Comments Unknown Sex and Gender Information Value Date Recorded Sex Assigned at Not on file Legal Sex Female 5:30 PM EST Gender Identity Not on file Sexual Orientation Not on file documented as of this encounter Plan of Treatment Not on file documented as of this encounter Procedures Procedure Name Priority Date/Time Associated Diagnosis Comments THYROID STIMULATING HORMONE WITH REFLEX TO FREE T4 AND FREE T3 Routine 06/28/2024 7:46 AM EST Anemia, unspecified Pure hypercholesterolemi a, unspecified Vitamin D deficiency, unspecified LIPID PANEL WITH REFLEX TO DIRECT LDL Routine 06/28/2024 7:46 AM EST Anemia, unspecified Pure hypercholesterolemi a, unspecified Vitamin D deficiency, unspecified CBC WITH AUTO DIFFERENTIAL Routine 06/28/2024 7:46 AM EST Anemia, unspecified Pure hypercholesterolemi a, unspecified Vitamin D deficiency, unspecified VITAMIN D 25 HYDROXY Routine 06/28/2024 7:46 AM EST Anemia, unspecified Pure hypercholesterolemi a, unspecified Vitamin D deficiency, unspecified CBC AND DIFFERENTIAL Routine 06/28/2024 7:46 AM EST Anemia, unspecified Pure hypercholesterolemi a, unspecified Vitamin D deficiency, unspecified COMPREHENSIVE METABOLIC PANEL Routine 06/28/2024 7:46 AM EST Anemia, unspecified Pure hypercholesterolemi a, unspecified Vitamin D deficiency, unspecified documented in this encounter Results * (ABNORMAL) CBC auto differential (06/28/2024 7:46 AM EST) [facility] WBC 4.4(L) 4.8 - 10.8 K/mcL LAB HEMETOLOGY METHOD 06/28/2024 1:04 PM [facility] RBC 3.50(L) 3.80 - 4.80 M/mcL LAB HEMETOLOGY METHOD 06/28/2024 1:04 PM [facility] Hemoglobin 11.8 11.5 - 16.0 g/dL LAB HEMETOLOGY METHOD 06/28/2024 1:04 PM [facility] Hematocrit 37.4 35.0 - 47.0 % LAB HEMETOLOGY METHOD 06/28/2024 1:04 PM [facility] MCV 107.8(H) 79.0 - 98.0 FL LAB HEMETOLOGY METHOD 06/28/2024 1:04 PM [facility] MCH 34.0(H) 27.0 - 32.0 pcg LAB HEMETOLOGY METHOD 06/28/2024 1:04 PM [facility] MCHC 31.6(L) 32.0 - 37.0 g/dL LAB HEMETOLOGY METHOD 06/28/2024 1:04 PM [facility] RDW 14.0 11.0 - 15.0 % LAB HEMETOLOGY METHOD 06/28/2024 1:04 PM [facility] Platelets 189 130 - 400 K/mcL LAB HEMETOLOGY METHOD 06/28/2024 1:04 PM [facility] MPV 9.7 7.0 - 11.0 FL LAB HEMETOLOGY METHOD 06/28/2024 1:04 PM [facility] NRBC 0.0 <1.0 % LAB HEMETOLOGY METHOD 06/28/2024 1:04 PM [facility] NRBC Absolute 0.00 <0.10 K/mcL LAB HEMETOLOGY METHOD 06/28/2024 1:04 PM [facility] Neutrophils Relative 65.2 % LAB HEMETOLOGY METHOD 06/28/2024 1:04 PM [facility] Lymphocytes Relative 22.1 % LAB HEMETOLOGY METHOD 06/28/2024 1:04 PM [facility] Monocytes Relative 8.3 % LAB HEMETOLOGY METHOD 06/28/2024 1:04 PM [facility] Eosinophils Relative 3.4 % LAB HEMETOLOGY METHOD 06/28/2024 1:04 PM [facility] Basophils Relative 0.5 % LAB HEMETOLOGY METHOD 06/28/2024 1:04 PM [facility] Immature Granulocytes Relative 0.5 % LAB HEMETOLOGY METHOD 06/28/2024 1:04 PM [facility] Neutrophils Absolute 2.84 1.50 - 7.00 K/mcL LAB HEMETOLOGY METHOD 06/28/2024 1:04 PM [facility] Lymphocytes Absolute 0.96(L) 1.00 - 5.00 K/mcL LAB HEMETOLOGY METHOD 06/28/2024 1:04 PM [facility] Monocytes Absolute 0.36 0.20 - 1.00 K/mcL LAB HEMETOLOGY METHOD 06/28/2024 1:04 PM [facility] Eosinophils Absolute 0.15 0.00 - 0.50 K/mcL LAB HEMETOLOGY METHOD 06/28/2024 1:04 PM EST [facility] Basophils Absolute 0.02 0.00 - 0.20 K/mcL LAB HEMETOLOGY METHOD 06/28/2024 1:04 PM EST [facility] Immature Granulocytes Absolute 0.02 0.00 - 0.03 K/mcL LAB HEMETOLOGY METHOD 06/28/2024 1:04 PM EST [facility] Blood Venous blood specimen / Unknown Venipuncture / Unknown 06/28/2024 7:46 AM EST 06/28/2024 12:35 PM EST Kavon Ramirez MD LAB BLOOD ORDERABLES Final R esult Performing Organization Address City/[facility]/ZIP Co de Phone Number [facility] [address] [place] [address], [place] [phone] * Thyroid stimulating hormone with reflex to free t4 and free t3 (06/28/2024 7:46 AM EST) TSH 2.85 0.40 - 4.00 mcIU/mL LAB CHEMISTRY METHOD 06/28/2024 2:06 PM EST [facility] Blood Venous blood specimen / Unknown Venipuncture / Unknown 06/28/2024 7:46 AM EST 06/28/2024 12:35 PM EST Kavon Ramirez MD LAB BLOOD ORDERABLES Final R esult [facility] [address] [place] [address], [place] [phone] * (ABNORMAL) Comprehensive metabolic panel (06/28/2024 7:46 AM EST) Sodium 142 133 - 145 mmol/L LAB CHEMISTRY METHOD 06/28/2024 1:57 PM EST [facility] Potassium 4.8 3.5 - 5.5 mmol/L LAB CHEMISTRY METHOD 06/28/2024 1:57 PM [facility] Chloride 108 96 - 110 mmol/L LAB CHEMISTRY METHOD 06/28/2024 1:57 PM [facility] CO2 27 21 - 32 mmol/L LAB CHEMISTRY METHOD 06/28/2024 1:57 PM [facility] Anion Gap 7 3 - 11 LAB CHEMISTRY METHOD 06/28/2024 1:57 PM [facility] Glucose 90 70 - 100 mg/dL LAB CHEMISTRY METHOD 06/28/2024 1:57 PM [facility] BUN 23 5 - 25 mg/dL LAB CHEMISTRY METHOD 06/28/2024 1:57 PM [facility] Creatinine 0.79 0.50 - 1.10 mg/dL LAB CHEMISTRY METHOD 06/28/2024 1:57 PM [facility] eGFR 74 >=60 mL/min/1. 73m2 LAB CHEMISTRY METHOD 06/28/2024 1:57 PM [facility] Comment:Calculation based on the Chronic Kidney Disease Epidemiology Collaboration (CKD-EPI) equation refit without adjustment for race. BUN/Creatinine Ratio 29.1 LAB CHEMISTRY METHOD 06/28/2024 1:57 PM [facility] Calcium 8.3(L) 8.5 - 10.5 mg/dL LAB CHEMISTRY METHOD 06/28/2024 1:57 PM [facility] AST (SGOT) 19 10 - 42 unit/L LAB CHEMISTRY METHOD 06/28/2024 1:57 PM [facility] ALT (SGPT) 25 10 - 60 unit/L LAB CHEMISTRY METHOD 06/28/2024 1:57 PM [facility] Alkaline Phosphatase 80 42 - 121 unit/L LAB CHEMISTRY METHOD 06/28/2024 1:57 PM [facility] Total Protein 5.7(L) 6.0 - 8.0 g/dL LAB CHEMISTRY METHOD 06/28/2024 1:57 PM [facility] Albumin 3.0(L) 3.2 - 5.0 g/dL LAB CHEMISTRY METHOD 06/28/2024 1:57 PM [facility] Total Bilirubin 0.5 0.0 - 1.4 mg/dL LAB CHEMISTRY METHOD 06/28/2024 1:57 PM [facility] Blood Venous blood specimen / Unknown Venipuncture / Unknown 06/28/2024 7:46 AM EST 06/28/2024 12:35 PM EST Kavon Ramirez MD LAB BLOOD ORDERABLES Final R esult Performing Organization Address City/[facility]/ZIP Co de Phone Number [facility] [address] [place] [address], [place] [phone] * Vitamin D 25 hydroxy (06/28/2024 7:46 AM EST) Pathologist [facility] Vit D, 25-Hydroxy 62.5 30.0 - 80.0 ng/mL LAB CHEMISTRY METHOD 06/28/2024 2:06 PM [facility] Blood Venous blood specimen / Unknown Venipuncture / Unknown 06/28/2024 7:46 AM EST 06/28/2024 12:35 PM EST Kavon Ramirez MD LAB BLOOD ORDERABLES Final R esult [facility] [address] [place] [address], [place] [phone] * Lipid panel with reflex to direct LDL (06/28/2024 7:46 AM EST) Pathologist [facility] Cholesterol 140 0 - 200 mg/dL LAB CHEMISTRY METHOD 06/28/2024 1:57 PM [facility] Triglycerides 85 0 - 150 mg/dL LAB CHEMISTRY METHOD 06/28/2024 1:57 PM [facility] HDL 54 >=40 mg/dL LAB CHEMISTRY METHOD 06/28/2024 1:57 PM EST [facility] LDL Calculated 69 0 - 100 mg/dL LAB CHEMISTRY METHOD 06/28/2024 1:57 PM [facility] VLDL Cholesterol Edgardo 17 mg/dL LAB CHEMISTRY METHOD 06/28/2024 1:57 PM EST [facility] Non HDL Chol. (LDL+VLDL) 86 <145 mg/dL LAB CHEMISTRY METHOD 06/28/2024 1:57 PM EST [facility] Chol/HDL Ratio 2.6 0.0 - 4.4 LAB CHEMISTRY METHOD 06/28/2024 1:57 PM [facility] Blood Venous blood specimen / Unknown Venipuncture / Unknown 06/28/2024 7:46 AM EST 06/28/2024 12:35 PM EST us Kavon Ramirez MD LAB BLOOD ORDERABLES Final R esult [facility] [address] [place] [address], documented in this encounter Visit Diagnoses Diagnosis Anemia, unspecified Pure hypercholesterolemia, unspecified Vitamin D deficiency, unspecified documented in this encounter Care Teams Telegraphic Typewriter Repairer Relationship Specialty Start Date End Date Kavon Ramirez MD [address] [place] [address] [address] [place] PCP - General Internal Medicine 06/28/24 documented as of this encounter
--- OUTSIDE RECORDS SUMMARY | 2024-11-14 15:24 | XMS_ITS | Patient Health Record ---
[facility] [address] [place] [address] Care Team Providers Care Proofer Prepress Name Role Phone James STEPHENS, [place] Primary Care Provider Diana gonzalez Sonam Atkins Unavailable [phone] Reason For Referral No Information Medications Medication SIG (Take, Route, Fr equency, Duration) Notes Start Date End Date Status Propranolol HCl 80 MG 1 tablet Orally Twice a day Active Lisinopril 10 MG 1 tablet Orally Once a day Active Problems No Known Problems Plan Of Treatment Pending Test Test Name Order Date [id number] NAIL, 6 OR MORE 11/22/2013 38093-Vyjrmocr Plate 09/23/2015 38674- Debride <25 sq cm 12/06/2013 21694- Debride <25 sq cm 09/11/2013 47394 I&D ABSCESS- SIMPLE,SINGLE [id number] I&D ABSCESS- SIMPLE,SINGLE 014 Insurance Providers Payer Name Payer Address Payer Phone Subscriber Number Group Number Insured Name Patient Relationship to Insured Coverage Start Date Coverage End Date Medicare [facility] [address] [place] [id number] Katarzyna Driver Self - patient is the insured [employer] [address] [place] [address] [id number] Katarzyna Driver Self - patient is the insured Medical (General) History Medical History History ICD Code High blood pressure Chicken pox Mumps Measles
--- OUTSIDE RECORDS SUMMARY | 2024-11-14 15:24 | XMS_ITS | Patient Health Record ---
Author Organization [facility] Address [address] [place] [address] Care Team Providers Care Toe Former [employer] Name Role Phone James STEPHENS, [place] Primary Care Provider Prabhu Pastor Unavailable [phone] Reason For Referral No Information Medications Medication SIG (Take, Route, Fr equency, Duration) Notes Start Date End Date Status Lisinopril Active Propranolol HCl Acti ve Problems Problem Type SNOMED Code ICD Code Onset Dates Problem Status W/U Status Risk Notes Problem Colon cancer screening (V76.51) Active confirmed Plan Of Treatment Future Test Test Name Order Date COLONOSCOPY 08/31/2012 Insurance Providers Payer Name Payer Address Payer Phone Subscriber Number Group Number Insured Name Patient Relationship to Insured Coverage Start Date Coverage End Date MEDICARE OF [place] [address] [place] [address] [id number] SEBASTIAN LOUISA Self - patient is the insured [employer] CLAIM[employer] [address] [place] [phone] [id number] SEBASTIAN LOUISA Self - patient is the insured Medical (General) History Medical History History ICD Code colonoscopy 05-16-2001-no polyps diverticulosis Denies NC,DM,CVA,Lung disease,renal dise ase HTN
== END 2024-11-14 14:37 | disposition home or self-care (01) ==
LOC: HO.HMCH 14:05
PROVIDERS: PCP Internal Medicine; Visit Provider Internal Medicine
DX: I10 Essential (primary) hypertension (principal); E78.5 Hyperlipidemia, unspecified; R73.01 Impaired fasting glucose; G43.909 Migraine, unspecified, not intractable, without status migrainosus; M81.0 Age-related osteoporosis without current pathological fracture; M17.11 Unilateral primary osteoarthritis, right knee; E55.9 Vitamin D deficiency, unspecified; K21.9 Gastro-esophageal reflux disease without esophagitis; K59.00 Constipation, unspecified; R31.1 Benign essential microscopic hematuria; E66.3 Overweight

== ENCOUNTER → 2024-11-14 14:04 | Outpatient (BNVA) | payer MEDICARE, SELFPAY | PROVIDERS: PCP Internal Medicine; Visit Provider Internal Medicine | DX: I10 Essential (primary) hypertension (principal); E78.5 Hyperlipidemia, unspecified; R73.01 Impaired fasting glucose; G43.909 Migraine, unspecified, not intractable, without status migrainosus; M81.0 Age-related osteoporosis without current pathological fracture; M17.11 Unilateral primary osteoarthritis, right knee; E55.9 Vitamin D deficiency, unspecified; K21.9 Gastro-esophageal reflux disease without esophagitis; K59.00 Constipation, unspecified; R31.1 Benign essential microscopic hematuria; E66.3 Overweight; Z68.27 Body mass index [BMI] 27.0-27.9, adult; Z71.3 Dietary counseling and surveillance | CPT/HCPCS: 96127; 99212 ==